=== PATIENT | female | born 1935 | race Caucasian/White ===

== ENCOUNTER 2019-09-11 18:33 | Inpatient (IN) | payer MEDICARE, MEDICAID ==
[~2019-09-11] VITALS: Ht 154.9 cm; Wt 42.2 kg
[2019-09-11 20:05] LABS: BASO % 0 % (0-3); EOS % 0 % (0-3); HEMOGLOBIN 10.3 g/dL (12.0-15.5); LYMPH # 1.7 x10^3/uL (1.0-4.8); LYMPH % 9 % (24-48); MEAN CORPUSCULAR HEMOGLOBIN 31 pg (25-35); MEAN CORPUSCULAR HGB CONC 31 g/dL (31-37); MEAN CORPUSCULAR VOLUME 98 fL (79-100); MONO # 0.9 x10^3/uL (0.0-1.1); MONO % 5 % (0-9); NEUT # 16.9 x10^3uL (1.8-7.7); NEUT % 86 % (31-73); PLATELET COUNT 633 x10^3/uL (140-400); RED BLOOD COUNT 3.38 x10^6/uL (3.50-5.40); RED CELL DISTRIBUTION WIDTH 14.8 % (11.5-14.5); WHITE BLOOD COUNT 19.6 x10^3/uL (4.0-11.0)
[2019-09-11 20:06] LABS: ALBUMIN 2.8 g/dL (3.4-5.0); ALBUMIN/GLOBULIN RATIO 0.6 (1.0-1.7); CALCIUM 9.4 mg/dL (8.5-10.1); CREATININE 1.1 mg/dL (0.6-1.0); GFR 47.1; MAGNESIUM 2.6 mg/dL (1.8-2.4); POTASSIUM 5.2 mmol/L (3.5-5.1); TOTAL BILIRUBIN 0.4 mg/dL (0.2-1.0); TOTAL PROTEIN 7.7 g/dL (6.4-8.2)
[2019-09-11 20:35] LABS: BILIRUBIN,URINE NEG (NEG); CLARITY,URINE CLEAR; COLOR,URINE YELLOW; GLUCOSE,URINE NEG (NEG); NITRITE,URINE NEG (NEG); UROBILINOGEN,URINE 0.2 mg/dL (0.2 mg/dL)
[2019-09-11 20:36] LABS: BACTERIA,URINE FEW /HPF (0-FEW); HYALINE CASTS, URINE MOD /HPF; RBC,URINE 0 /HPF (0-2); SQUAMOUS EPITHELIAL CELL,UR MOD /LPF; WBC,URINE 0 /HPF (0-4)
[2019-09-11 20:46] LABS: % LYMPHS 8 % (24-48); % MONOS 3 % (0-10); % SEGS 89 % (35-66); PLT ESTIMATE INCREASED (ADEQUATE); POIKILOCYTOSIS SLIGHT
[2019-09-11 20:47] LABS: ANISOCYTOSIS SLIGHT; STOMATOCYTES MOD
[2019-09-11] MEDS ORDERED: MELA3TAB56 PO (20:48)
[2019-09-11] MEDS ORDERED: FAMO20TA5 PO (20:48)
[2019-09-11] MEDS ORDERED: ALEN70TA6 PO (20:48)
[2019-09-11] MEDS ORDERED: CALC-157 PO (20:48)
[2019-09-11] MEDS ORDERED: ALPR0.254 PO (20:48)
[2019-09-11] MEDS ORDERED: MAG355OR11 PO (20:48)
[2019-09-11] MEDS ORDERED: TROL35.4 TP (20:48)
[2019-09-11] MEDS ORDERED: SERT50TA PO (20:48)
[2019-09-11] MEDS ORDERED: TRAM50TA PO (20:48)
[2019-09-11] MEDS ORDERED: ACET325T9 PO (20:48)
[2019-09-11] MEDS ORDERED: IPRA3AMP29 NEB (20:48)
[2019-09-11] MEDS ORDERED: POLY2500 PO (20:48)
[2019-09-11] MEDS ORDERED: MAGN2400 PO (20:48)
[2019-09-11] MEDS ORDERED: BISA10SU4 RC (20:48)
[2019-09-11] MEDS ORDERED: PRED5TAB PO (20:48)
[2019-09-11] MEDS ORDERED: METO25TA4 PO (20:48)
[2019-09-11] MEDS ORDERED: BUDE10.22 IH (20:48)
[2019-09-11] MEDS ORDERED: CHOL400T14 PO (20:48)
[2019-09-11] MEDS ORDERED: BISA5TAB4 PO (20:48)
[2019-09-11] MEDS ORDERED: ASPI325T8 PO (20:48)
--- NOTE | 2019-09-11 20:58 | PHYS DOC ---
Past History Past Medical History: A-Fib, Anxiety, COPD, GERD, High Cholesterol, Hip Fracture, Hypertension, Other Additional Past Medical Histor: OSTEOPORESIS Past Surgical History: Other Additional Past Surgical Histo: Hip ORIF Smoking: Quit Less Than 1 Year Alcohol Use: None Drug Use: None Adult General Chief Complaint Chief Complaint: MEDICAL CLEARANCE HPI HPI 84 year old female presents from [facility] for medical evaluation for admission to [facility]. Patient denies any compliant at this time. Patient with recent hip surgery 3 weeks ago. residential report noted patient yelling at staff, angry, and combative. Patient currently denies any complaint. Denies fever or chills. Denies dysuria. Patient with history of COPD. Reports recently discontinuing smoking apprising 6 months prior. Patient is chronically on supplemental oxygen via nasal cannula at 2 L. Review of Systems Review of Systems Constitutional: Denies fever or chills Eyes: Denies redness or eye pain HENT: Denies nasal congestion or sore throat Respiratory: Denies cough or shortness of breath Cardiovascular: Denies chest pain or palpitations GI: Denies abdominal pain, nausea, or vomiting : Denies dysuria or hematuria Musculoskeletal: Denies back pain or joint pain Integument: Denies rash or skin lesions Neurologic: Denies headache, focal weakness or sensory changes Complete systems were reviewed and found to be within normal limits, except as documented in this note. Allergies Allergies Allergies Coded Allergies Type Severity Reaction Last Updated Verified No Known Drug Allergies 09/11/19 No Physical Exam Physical Exam Constitutional: Well developed, well nourished, no acute distress, non-toxic appearance HENT: Normocephalic, atraumatic, oropharynx moist Eyes: PERRL, EOMI, conjunctiva normal, no discharge Neck: Normal range of motion, no tenderness, supple Cardiovascular: Heart rate normal, regular rhythm Lungs & Thorax: Bilateral breath sounds clear to auscultation, no wheezing Abdomen: Soft, no tenderness Skin: Warm, dry, no erythema, no rash Extremities: No tenderness, no edema, left hip incision site currently dressed without saturation or surrounding erythema Neurologic: Alert and oriented X 3, normal motor function, normal sensory fun ction, no focal deficits noted Psychologic: Affect normal, judgement normal Current Patient Data Vital Signs Vital Signs Date Time Temp Pulse Resp B/P (MAP) Pulse Ox O2 Delivery O2 Flow Rate FiO2 09/11/19 19:00 97.5 95 28 97 Nasal Cannula 2.0 Lab Results Laboratory Tests Test 09/11/19 19:15 09/11/19 19:50 White Blood Count 19.6 x10^3/uL (4.0-11.0) H Red Blood Count 3.38 x10^6/uL (3.50-5.40) L Hemoglobin 10.3 g/dL (12.0-15.5) L Hematocrit 33.0 % (36.0-47.0) L Mean Corpuscular Volume 98 fL (79-100) Mean Corpuscular Hemoglobin 31 pg (25-35) Mean Corpuscular Hemoglobin Concent 31 g/dL (31-37) Red Cell Distribution Width 14.8 % (11.5-14.5) H Platelet Count 633 x10^3/uL (140-400) H Neutrophils (%) (Auto) 86 % (31-73) H Lymphocytes (%) (Auto) 9 % (24-48) L Monocytes (%) (Auto) 5 % (0-9) Eosinophils (%) (Auto) 0 % (0-3) Basophils (%) (Auto) 0 % (0-3) Neutrophils # (Auto) 16.9 x10^3uL (1.8-7.7) H Lymphocytes # (Auto) 1.7 x10^3/uL (1.0-4.8) Monocytes # (Auto) 0.9 x10^3/uL (0.0-1.1) Eosinophils # (Auto) 0.0 x10^3/uL (0.0-0.7) Basophils # (Auto) 0.0 x10^3/uL (0.0-0.2) Segmented Neutrophils % 89 % (35-66) H Lymphocytes % 8 % (24-48) L Monocytes % 3 % (0-10) Platelet Estimate Increased (ADEQUATE) Large Platelets Few Giant Platelets Few Poikilocytosis Slight Anisocytosis Slight Stomatocytes Mod Prothrombin Time 9.7 SEC (9.4-11.4) Prothrombin Time INR 0.9 (0.9-1.1) Activated Partial Thromboplast Time 29 SEC (23-33) Sodium Level 141 mmol/L (136-145) Potassium Level 5.2 mmol/L (3.5-5.1) H Chloride Level 99 mmol/L (98-107) Carbon Dioxide Level 35 mmol/L (21-32) H Anion Gap 7 (6-14) Blood Urea Nitrogen 31 mg/dL (7-20) H Creatinine 1.1 mg/dL (0.6-1.0) H Estimated GFR (Cockcroft-Gault) 47.1 BUN/Creatinine Ratio 28 (6-20) H Glucose Level 157 mg/dL (70-99) H Calcium Level 9.4 mg/dL (8.5-10.1) Magnesium Level 2.6 mg/dL (1.8-2.4) H Total Bilirubin 0.4 mg/dL (0.2-1.0) Aspartate Amino Transferase (AST) 20 U/L (15-37) Alanine Aminotransferase (ALT) 14 U/L (14-59) Alkaline Phosphatase 182 U/L (46-116) H Creatine Kinase 36 U/L (26-192) Creatine Kinase MB (Mass) 1.0 ng/mL (0.0-3.6) Creatine Kinase MB Relative Index 2.8 % (0-4) Troponin I Quantitative < 0.017 ng/mL (0-0.055) Total Protein 7.7 g/dL (6.4-8.2) Albumin 2.8 g/dL (3.4-5.0) L Albumin/Globulin Ratio 0.6 (1.0-1.7) L Urine Collection Type Unknown Urine Color Yellow Urine Clarity Clear Urine pH 5.5 Urine Specific [place] 1.020 Urine Protein Neg (NEG-TRACE) Urine Glucose (UA) Neg mg/dL (NEG) Urine Ketones (Stick) Neg mg/dL (NEG) Urine Blood Neg (NEG) Urine Nitrite Neg (NEG) Urine Bilirubin Neg (NEG) Urine Urobilinogen Dipstick 0.2 mg/dL (0.2 mg/dL) Urine Leukocyte Esterase Neg (NEG) Urine RBC 0 /HPF (0-2) Urine WBC 0 /HPF (0-4) Urine Squamous Epithelial Cells Mod /LPF Urine Bacteria Few /HPF (0-FEW) Urine Hyaline Casts Mod /HPF Urine Mucus Slight /LPF EKG EKG @1922 NRS at 78bpm, no ST elevation, QRS 74ms, QT/QTc 346/398ms Radiology/Procedures Radiology/Procedures CXR AP: Hyperventilation consistent for COPD, lung markings consistent for fibrosis noted Course & Med Decision Making Course & Med Decision Making Pertinent Labs and Imaging studies reviewed. (See chart for details) Elderly patient presents from [facility]. Patient apparently has been more agitated and aggressive to [facility] staff. Patient currently call. Follows directions well. Patient alert and oriented 3. Patient chronically on supplemental O2. Vital signs stable. Labs obtained and posted to chart. WBC elevated. Medical record notes patient currently being treated with prednisone which may explain leukocytosis. Chest x-ray with signs of COPD without focal signs of pneumonia. UA without signs of infection. EKG stable. Patient appears stable for admission to [facility] despite leukocytosis. Will continue with admission to [facility] under Dr. Damian (psych). Dragon Disclaimer Dragon Disclaimer This electronic medical record was generated, in whole or in part, using a voice recognition dictation system. Departure Departure: Impression: Primary Impression: Medical clearance for psychiatric admission Additional Impression: Leukocytosis Disposition: 09 ADMITTED INPATIENT (to [facility]) Condition: STABLE Referrals: CHIKA BARRERA DO (PCP) Problem Qualifiers Additional Impression: Leukocytosis Leukocytosis type: unspecified Qualified Codes: D72.829 - Elevated white blood cell count, unspecified MALATHI AMARAL DO Sep 11, 2019 20:58
--- NOTE | 2019-09-11 21:44 | NUR ---
Admission Note with Justification for Admission to [facility] Patient admitted to [facility] for protective oversight for emergency stabilization of acute psychiatric crisis. Pt admitted from: [facility] ER Mode of arrival: EMS Accompanied By: ER staff/ EMS Precipitating behaviors that initiated intake and admission: Increased agitation upon return to facility after hip fracture, refusing neurochecks, swinging arms at staff, angry and labile mood. Description of failure of out patient attempts at stabilization in previous setting list behavior and medication trials: Seen by [facility] via [facility], medication changes. Behaviors and assessment findings upon admission: Pt alert, irritable with staff during assessment. Pt refusing to answer questions, reports that she doesn't have a birthdate and that she doesn't know her last name. When asked where she is, pt replied "I don't know", then stated she was at a restaurant eating hamburgers. Pt on O2 @2L continuously, has upper and lower dentures, and glasses. Dressing to left hip C/D/I, picture taken. Pt was changed into a gown, non-slip socks on, bed low and locked with alarm on. Plan: Admit for protective oversight for adjustment and stabilization of medications, behaviors and mood. Intense treatment regimen including groups, medication adjustments, therapy, consistent regimen for ADL's, self care, and sleep hygiene. Daily monitoring by Inpatient staff, Psychiatry, and Medical Physician.
[2019-09-11 21:57] VITALS: BP 119/51
[2019-09-11] MEDS ORDERED: BISACODYL 10 MG SUPP.RECT RC PRN (22:15)
[2019-09-11] MEDS ORDERED: IPRATRPIUM/ALBUTEROL 0.5/2.5MG 3 ML NEBU. NEB PRN (22:15)
[2019-09-11] MEDS ORDERED: BISACODYL TAB 5 MG TABLET.DR. PO PRN (22:15)
[2019-09-11] MEDS ORDERED: ACETAMINOPHEN 325 MG TABLET PO PRN (22:15)
--- NOTE | 2019-09-11 22:29 | RAD ---
Single view chest dated 09/11/2019. No comparison available. CLINICAL INDICATION: Cough. FINDINGS: Single upright portable exam performed. Heart and mediastinal contours within normal limits. Lungs are hyperinflated there is a ovoid areas of increased density projected over the right chest could be related to healed or healing rib fractures or underlying lung nodules. There is blunting of the right costophrenic sulcus. No pneumothorax. IMPRESSION: 1. Ovoid areas of increased density projected over the right chest could be related to healed or healing rib fractures and/or underlying lung nodules. PA and lateral chest exam or chest CT could better evaluate. 2. Suspected small right pleural effusion. 3. Findings consistent with COPD. Electronically signed by: Prasanna Malik MD (09/11/2019 10:26 PM) [facility]
[2019-09-11] MEDS ORDERED: MAG HYDROX/AL HYDROX/SIMETH 30 ML ORAL.SUSP PO PRN (22:30)
[2019-09-11] MEDS ORDERED: TROLAMINE SALICYLATE 10% TOPICAL CREAM 85GM JAR. TP PRN ×2 (22:30)
[2019-09-11] MEDS ORDERED: MAGNESIUM HYDROXIDE 2,400 MG/30 ML ORAL.SUSP. PO PRN (22:30)
[2019-09-11] MEDS: traMADol 50 MG TABLET PO SCH (23:28)
[2019-09-11] MEDS: MELATONIN 3 MG TABLET PO SCH (23:29)
--- NOTE | 2019-09-12 03:39 | EKG ---
[address] [address] Test Date: 2019-09-11 Test Time: 19:22:43 Pat Name: JESSICA HAYES Department: Room: [address] [place] [address] Gender: F Rural Route Carrier: GALI : 1935 Requested By: MALATHI AMARAL Order Number: [id number] Reading MD: Brando Painter MD Measurements Intervals [place] Rate: 78 P: 57 NE: 130 QRS: 61 QRSD: 74 T: 54 QT: 346 QTc: 398 Interpretive Statements SINUS RHYTHM Electronically Signed On 10-19-2019 9:03:58 RUBBER INSULATOR by Brando Painter MD
[2019-09-12 05:05] VITALS: BP 147/82
[2019-09-12] MEDS: ALBUTEROL SULFATE 2.5 MG/3 ML NEBU. NEB SCH ×4 (05:28→23:43)
[2019-09-12] MEDS: traMADol 50 MG TABLET PO SCH ×3 (06:00→18:03)
[2019-09-12] MEDS ORDERED: NON FORMULARY ITEM (Budesonide/Formoterol Fumarate (Symbicort 80-4.5 Mcg Inhaler) 2 PUFF) IH SCH (09:00)
[2019-09-12] MEDS: ASPIRIN 325 MG TABLET PO SCH (09:58)
[2019-09-12] MEDS: METOPROLOL TART IMMED RELEASE 25 MG TABLET PO SCH ×2 (09:59→20:07)
[2019-09-12] MEDS: CALCIUM CARB/VIT D3 500/200 TABLET PO SCH ×2 (09:59→20:07)
[2019-09-12] MEDS: SERTRALINE 50 MG TABLET. PO SCH (09:59)
[2019-09-12] MEDS: predniSONE 5 MG TABLET PO SCH (09:59)
[2019-09-12] MEDS: CHOLECALCIFEROL (VITAMIN D3) 1,000 UNIT TABLET PO SCH (10:00)
[2019-09-12] MEDS: ALPRAZolam 0.25 MG TABLET PO SCH ×3 (10:00→20:06)
[2019-09-12] MEDS: FAMOTIDINE 20 MG TABLET PO SCH (10:01)
[2019-09-12] MEDS: POLYETHYLENE GLYCOL 3350 17 GM PACKET. PO SCH (10:01)
[2019-09-12] MEDS: BUDESONIDE 0.5 MG/2 ML NEBU NEB SCH ×2 (10:34→23:42)
--- NOTE | 2019-09-12 10:35 | NUR ---
NURSING NOTE ORTHO SURGERY PT SEEN DR MURRY FOR FOLLOW UP YESTERDAY 09/11/19. CALLED OFFICE [phone] AND NURSE STATES THE NOTES ARE NOTE FINISHED AND SHE WILL CHECK WITH THE DOCTOR AND FAX US ORDERS FOR DRESSING AND BATHING ABILITY ETC. MAXIM GOMEZ.
--- NOTE | 2019-09-12 13:52 | NUR ---
NURSING NOTE ORTHO ORDERS REMOVE SHASTA TO LEFT HIP. APPLY STERI STRIPS. MAY LEAVE OPEN TO AIR. MAY SHOWER. WEIGHT BEARING TOLERATED. PER DR MURRY/OBED. ORDERS PLACED IN CHART. SUTURES REMOVED. STERI STIRPS APPLIED. INCISION IS CLEAN AND INTACT. NO REDNESS/SWELLING/DISCHARGE. LEFT OPEN TO AIR. MAXIM GOMEZ.
[2019-09-12 13:56] LABS: THYROID STIM HORMONE (TSH) 0.987 uIU/mL (0.358-3.740)
--- NOTE | 2019-09-12 15:36 | NUR ---
NURSING NOTE PT WAS A&O X3 TODAY. PT WAS ABLE TO STATE HER NAME, , LOCATION, AND PRESIDENT BUT WAS NOT ORIENTED TO THE DATE, PT STATES "1993". PT WAS IN QUIET ROOM THIS AM UPON SHIFT CHANGE. PT OXYGEN TAKE WAS FOUND EMPTY THIS AM. TANK SWITCHED TO NEW ONE. PT HAD LEFT HIP SURGERY, SEE OTHER NOTE FOR ORDERS FROM DR MURRY. SHASTA REMOVED TODAY AND STERI STRIPS APPLIED. PT FOUND TO HAVE BANDAGE DATED 09/11 ON LEFT ELBOW, BANDAGE REMOVED AND SMALL SKIN TEAR WITH STERI STRIPS FOUND. CLEAN DRY AND INTACT. NO FURTHER CARE NEEDED AT THIS TIME. PT IS TO HAVE GRACE HOSE ON DURING THE DAY WHILE UP OUT OF BED. PT DENIED LAST BOWEL MOVEMENT, MIRALAX GIVEN. PT HAS BEEN CALM AND COOPERATIVE IN DAY ROOM THIS AFTERNOON. NO BEHAVIORS NOTED THUS FAR. COMPLIANT WITH MEDS AND INTERACTIVE WITH STAFF AND PATIENTS. PT SYPHILIS TEST POSITIVE, PCN G BENZATHINE ORDERED PER DR ROCKWELL. WILL CONTINUE TO MONITOR. MAXIM GOMEZ.
[2019-09-12 16:11] VITALS: BP 131/78
--- NOTE | 2019-09-12 18:48 | NUR ---
NURSING NOTE PT WAS FOUND ON THE FLOOR IN HER ROOM, PT STATES SHE IS TRYING TO GET TO THE KITCHEN. PT STATES SHE JUST GOT OUT OF THE HOSPITAL AND IS AT HER HOME. TRIED TO REORIENT PT. HELPED PT TO WHEELCHAIR AND PT ATTEMPT TO SWING AT STAFF. PT IS IN QUIET ROOM AT THIS TIME. MAXIM GOMEZ.
[2019-09-12 19:07] LABS: THYROXINE 4.6 ug/dL (4.5-12.0)
[2019-09-12] MEDS: MELATONIN 3 MG TABLET PO SCH (20:07)
--- NOTE | 2019-09-12 20:36 | PDOC ---
Exam Note: Rodolfo Note: Please also refer to the separate dictated note~for this date of service dictated separately. Discussed the patient with Nursing staff reviewed the chart.~Reviewed interim history and current functioning. Reviewed vital signs,~Labs/ Radiology~and current medications noted below. Continue current treatment with the changes noted in the dictated addendum note Assessment: Vital Signs/I&O: Vital Signs Date Time Temp Pulse Resp B/P (MAP) Pulse Ox O2 Delivery O2 Flow Rate FiO2 09/12/19 20:07 87 131/78 09/12/19 19:03 20 Nasal Cannula 2.0 09/12/19 16:11 98.6 97 I & O 09/11/19 09/11/19 09/12/19 15:00 23:00 07:00 Intake Total 0 ml Balance 0 ml Current Medications: Meds: Current Medications Medications (Trade) Dose Ordered Sig/Abiel Route PRN Reason Start Time Stop Time Status Last Admin Dose Admin Alprazolam (Xanax) 0.125 mg TID PO 09/12/19 09:00 09/12/19 20:06 Sertraline HCl (Zoloft) 50 mg DAILY PO 09/12/19 09:00 09/12/19 09:59 Aspirin (Josey Aspirin) 325 mg DAILY PO 09/12/19 09:00 09/12/19 09:58 Calcium/Vitamin D (Oscal D 500mg/ 200uts) 1 tab BID PO 09/12/19 09:00 09/12/19 20:07 Famotidine (Pepcid) 20 mg DAILY PO 09/12/19 09:00 09/12/19 10:01 Metoprolol Tartrate (Lopressor) 25 mg BID PO 09/12/19 09:00 09/12/19 20:07 Prednisone (Prednisone) 5 mg DAILY PO 09/12/19 09:00 09/12/19 09:59 Tramadol HCl (Ultram) 50 mg Q6HRS PO 09/12/19 00:00 09/12/19 18:03 Vitamin D (Vitamin D3) 500 unit DAILY PO 09/12/19 09:00 09/12/19 10:00 Polyethylene Glycol (miraLAX) 17 gm DAILY PO 09/12/19 09:00 09/12/19 10:01 Albuterol Sulfate (Ventolin) 2.5 mg RTQID NEB 09/12/19 08:00 09/12/19 16:13 Budesonide (Pulmicort) 0.5 mg RTBID NEB 09/12/19 08:00 09/12/19 10:34 Melatonin (Melatonin) 3 mg HS PO 09/11/19 23:30 09/12/19 20:07 I have reviewed the current psychotropics carefully including drug interactions. Risk benefit ratio favors no change other than as noted in my dictated progress note. Diagnosis: Problems: (1) Anxiety disorder (2) Dementia in Alzheimer's disease with delusions (3) Dementia in Alzheimer's disease with depression (4) Dementia, vascular, with delusions (5) Dementia, vascular, with depression (6) Impulse control disorder (7) [place] (hard of hearing) CHITRA BRANNON MD Sep 12, 2019 20:36
[2019-09-12] MEDS ORDERED: MELATONIN 3 MG TABLET PO SCH (21:00)
[2019-09-12] MEDS: PENICILLIN G BENZATHINE LA 1,200,000 UNIT/2 ML DISP.SYRIN. IM SCH (21:03)
--- NOTE | 2019-09-12 23:04 | NUR ---
Nursing Note The patient was very disorganized and combative at the beginning of this HS shift. The patient was attempting to put herself onto the floor and exit her chair without assistance. The patient removed her oxygen several times causing her oxygen saturation to drop into the 70s. The patient did become more complaint once helped into bed and eventually took her medication whole. The patient is currently sleeping in her room.
[2019-09-12 23:07] LABS: HEMOGLOBIN A1C 5.7 % (4.8-5.6)
--- NOTE | 2019-09-13 01:33 | CONS ---
DATE OF CONSULTATION: REASON FOR CONSULTATION: Medical management. HISTORY OF PRESENT ILLNESS: The patient is an 84-year-old female patient, a resident at [facility], who was admitted on account of increased agitation upon returned to the facility after hip surgery 2 weeks ago, has been refusing neuro checks, swinging arms at staff, shouting at staff, angry, have a labile mood. All of this in a background of major depressive disorder and mild cognitive impairment, who was admitted to this unit for inpatient psychiatric stabilization. On questioning her, she denied any complaints. PAST MEDICAL HISTORY: Significant for hypertension, hyperlipidemia, chronic obstructive pulmonary disease, atrial fibrillation, gastroesophageal reflux disease, and osteoporosis. PAST SURGICAL HISTORY: Significant for left hip fracture, status post open reduction and internal fixation. PAST PSYCHIATRIC HISTORY: Significant for generalized anxiety disorder and major depressive disorder, mild cognitive impairment as well as insomnia. ALLERGIES: She has no known drug allergies. MEDICATIONS: She is currently on following medications: She is on ipratropium bromide, albuterol sulfate 0.5-2.5 mg in 3 mL by nebulizer every 8 hours. She is on metoprolol tartrate 25 mg twice a day, aspirin 325 mg once a day, tramadol 50 mg every 6 hours as needed. She is also on Tylenol 650 mg every 6 hours, sertraline 50 mg at bedtime, alprazolam 0.25 mg, she takes 0.125 mg 3 times a day, calcium carbonate with vitamin D3 one tablet twice a day, Symbicort 2 puffs twice a day, Maalox 15-30 mL after meals, bisacodyl 10 mg suppositories rectally daily p.r.n. for constipation, bisacodyl 10 mg tablet once a day, milk of magnesia 30 mL p.o. daily p.r.n. for constipation, famotidine 20 mg daily, prednisone 5 mg once a day. She is also on Aspercreme 10% applied topically every 6 hours, vitamin D3 400 units once a day, alendronate 70 mg every Wednesday and melatonin 3 mg at bedtime. She is on polyethylene glycol 17 grams daily p.r.n. for constipation. REVIEW OF SYSTEMS: As per history of present illness. PHYSICAL EXAMINATION GENERAL: When I examined her, she was sitting comfortably in her wheelchair, in no apparent distress. She was pale, cachectic, but no jaundice, cyanosis or thyromegaly. No jugular venous distention. No lower limb edema. VITAL SIGNS: Her heart rate was 106, blood pressure was 147/82, temperature was ____, her respiratory rate was 16, and oxygen saturation was 92% on 2 liters of oxygen. HEAD, EYES, EARS, NOSE AND THROAT: Showed she is normocephalic, atraumatic. NECK: Supple. CARDIAC: Normal first and second heart sounds. No gallop or murmur. CHEST: Shows central trachea, equally reduced expansion, reduced air entry, vesicular breath sounds. I could not really appreciate any crepitation or rhonchi. ABDOMEN: Her abdomen is slightly distended, soft, nontender. NEUROLOGIC: She is awake, alert, responding appropriately. All her cranial nerves intact. She has marked muscle weakness. She seemed to be mostly wheelchair bound and oxygen dependent on 2 liters by nasal cannula. LABORATORY DATA: Showed that her white cell count was extremely high at 19,600, hemoglobin 10, hematocrit 33, MCV 98, platelet count of 633,000 with a manual differential, showed 86% polymorphs, 9% lymphocytes. Her prothrombin time, INR and aPTT were normal. Her chemistry showed that her serum sodium 141, potassium 5.2, chloride 99, bicarbonate 35, anion gap of 7, BUN 31, creatinine 1.1, estimated GFR was 47 mL per minute. Her glucose 157, calcium was 9.4, magnesium 2.6. Her serum iron, TIBC, and iron saturation are all very low, consistent with anemia of chronic disease. Her total bilirubin, AST, ALT were normal. Alkaline phosphatase slightly elevated. Total protein was 7.7, albumin was 2.8. Her vitamin B12, 25-hydroxy vitamin D, and TSH are all within normal range. Her serum triglycerides were 121, total cholesterol of 58, LDL was 78, VLDL was 24, HDL was 56 and the ratio was 2. Her urinalysis was essentially unremarkable and was negative for blood, nitrite, and leukocyte esterase. There are no rbc's, no wbc's, and very few bacteria. 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 IMPRESSION: In summary, this is an 84-year-old female patient, a resident at [facility], who was admitted on account of increased agitation upon return to facility after hip surgery 2 weeks ago, refusing neuro checks, and swinging arms at staff and shouting at staff and angry and labile mood. Her lab work shows prominent leukocytosis and also markedly elevated platelet. Her platelet count was 633,000 consistent probably with some form of polycythemia, although her hemoglobin and hematocrit were low; however, she has undergone surgery recently. 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 Thank you, Dr. Damian, for allowing me to participate in the care of this patient. KATIE ROCKWELL MD DR: ALETA/kem JOB#: [id number] / [id number]
[2019-09-13] MEDS: ALBUTEROL SULFATE 2.5 MG/3 ML NEBU. NEB SCH ×4 (05:10→20:06)
[2019-09-13 05:18] VITALS: BP 114/67
[2019-09-13] MEDS: traMADol 50 MG TABLET PO SCH ×4 (06:00→17:31)
[2019-09-13] MEDS: FAMOTIDINE 20 MG TABLET PO SCH (10:11)
[2019-09-13] MEDS: POLYETHYLENE GLYCOL 3350 17 GM PACKET. PO SCH (10:11)
[2019-09-13] MEDS: SERTRALINE 50 MG TABLET. PO SCH (10:11)
[2019-09-13] MEDS: CALCIUM CARB/VIT D3 500/200 TABLET PO SCH ×2 (10:11→20:30)
[2019-09-13] MEDS: CHOLECALCIFEROL (VITAMIN D3) 1,000 UNIT TABLET PO SCH (10:11)
[2019-09-13] MEDS: ASPIRIN 325 MG TABLET PO SCH (10:11)
[2019-09-13] MEDS: predniSONE 5 MG TABLET PO SCH (10:11)
[2019-09-13] MEDS: METOPROLOL TART IMMED RELEASE 25 MG TABLET PO SCH ×2 (10:11→20:30)
[2019-09-13] MEDS: ALPRAZolam 0.25 MG TABLET PO SCH ×3 (10:12→20:32)
[2019-09-13] MEDS: BUDESONIDE 0.5 MG/2 ML NEBU NEB SCH ×2 (11:12→20:06)
--- NOTE | 2019-09-13 11:14 | NUR ---
NURSING NOTE PT WANTED TO SLEEP IN THIS AM. PT SLEPT THROUGH BREAKFAST. PT GOT UP AROUND 0950. PT WAS CALM AND COOPERATIVE WITH CARES THIS AM AND COMPLIANT WITH MEDS. PT WAS A&O X 2 STATED IT WAS 2028. PT IS CURRENTLY IN DAY ROOM INTERACTING WITH OTHER PATIENTS. NO BEHAVIORS NOTED THUS FAR. WILL CONTINUE TO MONITOR. MAXIM GOMEZ.
--- NOTE | 2019-09-13 11:20 | NUR ---
PSYCHOSOCIAL ASSESSMENT ADMISSION DATE: 09/11/19 CONTACT INFORMATION: DPOA/Guardian Contact Name: N/A Contact Address: N/A Contact Phone #: N/A ETHNIC ORIGIN: REASONS FOR ADMISSION: Aggressive, Agitated, Angry, and Combative ADDITIONAL ADMISSION COMMENTS: Per pt. intake, pt. was agitated upon return to her facility, refusing neuro check, swinging arms at staff, shouting at staff, angry, and a labile mood. REASON FOR ADMISSION IN PATIENT/FAMILY'S OWN WORDS: Per pt., "My daughter brought me down." "I broke my hip." When asked what happen at her facility, pt. said she did not remember swing at staff. "They said I did." PATIENT/FAMILY EXPECTATIONS FOR ADMISSION: "Gettin Better" LIVING SITUATION: Assisted Living Contact Name: [facility] Contact Address: [place] Contact Phone #: [phone] Contact Fax #: [phone] FAMILY RELATIONS: Marital Status: # of Marriages: 2 # of Children: 2 Pt. has one son, Brenton, and a daughter, Magaly. [facility] Family Support: Concerned and Cooperative Additional Comments r/t Family: Pt. has given permission for staff to speak to her daughter, Magaly. SIGNIFICANT PSYCHIATRIC/MEDICAL HISTORY: Psychiatric/Treatment History: Pt. stated she was "probably" diagnosed with "anxiety." Per pt. intake pt. has a Mild Cognitive Impairment, Alzheimers, MDD, and insomnia. Pt. reports no previous psychiatric treatment history. Pertinent Family History: Pt. reports "no" pertinent family history. HISTORICAL DATA: Childhood Environment: "Not very good." "We were poor." Pt. grew up in [place] with her mother, father, and seven siblings. Pt. reports she has one brother still living. Psychological Abuse: None Drug Abuse History last 12 months: No Comment: Pt. reports she "gave up smoking" "four to five months ago". PERSONAL HISTORY: Vocational history: Pt. 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 service: N Yazidism background: "Well ya I am." "I don't go much." "I'm Worship." Sexual orientation: Heterosexual Educational Level: Pt. graduated from high school. Past/Present Interests/Hobbies: Pt. enjoys "sitting around reading" and "watching the news." Financial support/resources: Social Security Monthly income: $889 Person handling finances: Staff at [facility] Do you have a history of legal problems: N Cultural considerations: "No" SOCIAL RELATIONSHIPS-CURRENT/PAST: Psychiatrist:[facility] PCP: Dr. Lauren Montgomery Counselor/Therapist: None Veterans[employer] Administration: None Support Group: None Brusher Operator/First Grade Teacher: None Other relationships: None STRENGTHS & WEAKNESSES: Patient's strengths: Good verbal skills, Stable living arrangement, and Approachable Patient's weaknesses: Physically Aggressive and Verbally Aggressive PRELIMINARY PLAN OF TREATMENT: Preliminary plan: Promote Coping Skill, Medication Stabilization, Monitor Med Effects, Decrease Outbursts, and Decrease Aggression DISCHARGE PLANNING: Discharge planning/disposition: Current Living Arrangement ADDITIONAL INFORMATION: Pt. was able to supply the information for this assessment. Pt. recently had hip surgery.
--- NOTE | 2019-09-13 12:39 | NUR ---
NURSING NOTE AT LUNCH TODAY PT SEEMS TO COUGH WITH EVERY BITE. PUREED DIET ORDERED FOR NOW AND ORDER FOR SPEECH EVALUATION PLACED. WILL CONTINUE TO MONITOR. MAXIM GOMEZ.
[2019-09-13 15:46] VITALS: BP 115/70
--- NOTE | 2019-09-13 17:33 | NUR ---
NURSING NOTE PT IS AT DINNER, STATES THE FOOD IS COLD AND ISNT TASTING GOOD. OFFERED TO GET PT A NEW PLATE OF FOOD. PT REFUSED. PT STATED THAT HER HIP IS HURTING BUT IS REFUSING TO TAKE THE PAIN MEDICATION THAT IS SCHEDULED FOR HER PAIN. PT STATES "YOU ARENT KILLING ME TODAY". PT HIDING FOOD IN HER SOUP TO LOOK LIKE SHE ATE IT. MAXIM GOMEZ.
[2019-09-13] MEDS: MELATONIN 3 MG TABLET PO SCH (20:29)
[2019-09-13] MEDS: QUEtiapine 25 MG TABLET. PO SCH (20:30)
--- NOTE | 2019-09-13 20:40 | PDOC ---
Exam Note: Rodolfo Note: Please also refer to the separate dictated note~for this date of service dictated separately.~Patient seen individually. Discussed the patient with Nursing staff reviewed the chart.~Reviewed interim history and current functioning. Reviewed vital signs,~Labs/ Radiology~and current medications noted below. Continue current treatment with the changes noted in the dictated addendum note Assessment: Vital Signs/I&O: Vital Signs Date Time Temp Pulse Resp B/P (MAP) Pulse Ox O2 Delivery O2 Flow Rate FiO2 09/13/19 20:30 117 108/70 09/13/19 20:08 98 Nasal Cannula 2.0 09/13/19 15:46 98.1 18 I & O 09/12/19 09/12/19 09/13/19 15:00 23:00 07:00 Intake Total 480 ml 240 ml 100 ml Balance 480 ml 240 ml 100 ml Current Medications: Meds: Current Medications Medications (Trade) Dose Ordered Sig/Abiel Route PRN Reason Start Time Stop Time Status Last Admin Dose Admin Penicillin G Benzathine (Bicillin L-A) 2,400,000 unit WEEKLYHS IM 09/12/19 21:00 09/26/19 21:01 09/12/19 21:03 Alprazolam (Xanax) 0.125 mg BID PO 09/13/19 21:00 09/15/19 21:01 09/13/19 20:32 Quetiapine Fumarate (SEROquel) 25 mg HS PO 09/13/19 21:00 09/13/19 20:30 I have reviewed the current psychotropics carefully including drug interactions. Risk benefit ratio favors no change other than as noted in my dictated progress note. Diagnosis: Problems: (1) Anxiety disorder (2) Dementia in Alzheimer's disease with delusions (3) Dementia in Alzheimer's disease with depression (4) Dementia, vascular, with delusions (5) Dementia, vascular, with depression (6) Impulse control disorder (7) [place] (hard of hearing) CHITRA BRANNON MD Sep 13, 2019 20:40
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
--- NOTE | 2019-09-13 23:48 | NUR ---
Pt sitting up in w/c in the day room at shift change. Pt anxious, yelling out at times d/t left hip pain. Pt cooperative with assessment and cares, compliant with medications taken whole but did refuse her Os-heather because "it's too big", "I can't take that".
[2019-09-14] MEDS: ALBUTEROL SULFATE 2.5 MG/3 ML NEBU. NEB SCH ×4 (05:13→20:18)
[2019-09-14 05:55] VITALS: BP 122/59
[2019-09-14] MEDS: traMADol 50 MG TABLET PO SCH ×4 (06:00→12:44)
[2019-09-14] MEDS: ALPRAZolam 0.25 MG TABLET PO SCH ×2 (08:14→20:16)
[2019-09-14] MEDS: METOPROLOL TART IMMED RELEASE 25 MG TABLET PO SCH ×2 (08:15→20:16)
[2019-09-14] MEDS: predniSONE 5 MG TABLET PO SCH (08:15)
[2019-09-14] MEDS: ASPIRIN 325 MG TABLET PO SCH (08:15)
[2019-09-14] MEDS: CALCIUM CARB/VIT D3 500/200 TABLET PO SCH ×2 (08:15→20:15)
[2019-09-14] MEDS: CHOLECALCIFEROL (VITAMIN D3) 1,000 UNIT TABLET PO SCH (08:15)
[2019-09-14] MEDS: POLYETHYLENE GLYCOL 3350 17 GM PACKET. PO SCH (08:15)
[2019-09-14] MEDS: FAMOTIDINE 20 MG TABLET PO SCH (08:15)
--- NOTE | 2019-09-14 09:08 | NUR ---
WEEKLY ACTIVITY THERAPY NOTE Date of Admission: 09/11/2019 Date of AT Assessment: TBD Goal aimed: TBD Initial Goal: TBD Weekly progress towards goal: NA Group participation level: 2 group, moderate Weekly highlights: colored on clock on Wednesday, arranged le on Wednesday independently Behaviors observed: not around group often, using oxygen, during group on Wednesday: confused, restless trying to get up from wheelchair, thinking her daughter was down the rodriguez and it was time for her to go but she knew she didn't have a ride Plan: meet/assess Pt. Beneficial adaptations: oxygen concentrator, staff support, use of pocketalker
[2019-09-14] MEDS: SERTRALINE 50 MG TABLET. PO SCH (09:10)
--- NOTE | 2019-09-14 10:00 | NUR ---
Activity Therapy Assessment Completed based on interview, observation and [facility] notes. Pt. was sitting in the day room when therapist approached. Pt. uses a wheelchair due to a recent hip surgery and uses O2 as well. Pt. is hard of hearing and has a soft, mumbling voice that is difficult to understand at times. Pt. greeted therapist and asked how her mother was doing. Pt. was aware she was in the hospital- "waiting for this hip to heal. I had surgery". Pt. was unable to recall the exact place and stated the year as 1993. Pt. is and has two children, Brenton and Magaly. 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 Therapist observed that Pt. seemed to enjoy arranging silk le in a vase and coloring as well. Pt. often sleeps through groups but if she has direct support and prompting she is able to engage at times. Pt. can be combative with cares and often tries to stand unassisted from her wheelchair. When confused and disoriented, Pt. can be difficult to redirect. Initial goal to increase socialization and engagement: Pt. will engage in two Activity Therapy groups per week. Addendum: 09/28/19 at 0930 by [facility] [employer] [facility] Goal changed 09/28/19: Pt. will participate in at least five Activity Therapy groups per week
[2019-09-14] MEDS: BUDESONIDE 0.5 MG/2 ML NEBU NEB SCH ×2 (11:27→20:18)
--- NOTE | 2019-09-14 12:21 | NUR ---
CHANDANA contacted JERRY Regalado at [facility], to share pt. progress and discharge scheduled for the later part of next week. SW did shared pt. Xanax is being tapered, and pt. was started on Seroquel.
--- NOTE | 2019-09-14 15:18 | NUR ---
WEEKLY NOTE Pt. was present for treatment team. Pt. has been eating 50% of meals and sleeps an average of 5 hours. Pt. has been cooperative and medication compliant, however, has had periods of anxiousness and yelling out due to pain but is easily redirected. Pt. has trouble hearing but does not have hearing aids. Staff will encourage pt. to use a noise amplifier. Pt. medications continue to be adjusted and monitor. Pt. is set to discharge the later part of next week, back to [facility].
--- NOTE | 2019-09-14 15:48 | NUR ---
Nursing note: Pt has been in day room for most of the day. She has been compliant with taking her meds whole and was cooperative with her assessment. At the time of assessment, she was preoccupied with thinking she was going home. She attempted to stand up out of her wheelchair and told this nurse "I have to make sure my oxygen goes with me." She was able to be redirected at that time. Will continue to monitor.
[2019-09-14 16:15] VITALS: BP 111/64
[2019-09-14 20:14] VITALS: BP 134/61
[2019-09-14] MEDS: MELATONIN 3 MG TABLET PO SCH (20:16)
[2019-09-14] MEDS: QUEtiapine 25 MG TABLET. PO SCH (20:16)
--- NOTE | 2019-09-14 20:49 | PDOC ---
Exam Note: Rodolfo Note: Please also refer to the separate dictated note~for this date of service dictated separately.~Patient seen individually. Discussed the patient with Nursing staff reviewed the chart.~Reviewed interim history and current functioning. Reviewed vital signs,~Labs/ Radiology~and current medications noted below. Continue current treatment with the changes noted in the dictated addendum note Assessment: Vital Signs/I&O: Vital Signs Date Time Temp Pulse Resp B/P (MAP) Pulse Ox O2 Delivery O2 Flow Rate FiO2 09/14/19 20:19 98 Nasal Cannula 2.0 09/14/19 20:16 108 134/61 09/14/19 20:14 16 09/14/19 16:15 97.4 I & O 09/13/19 09/13/19 09/14/19 15:00 23:00 07:00 Intake Total 300 ml 100 ml Balance 300 ml 100 ml Current Medications: Meds: Current Medications Medications (Trade) Dose Ordered Sig/Abiel Route PRN Reason Start Time Stop Time Status Last Admin Dose Admin Alprazolam (Xanax) 0.125 mg BID PO 09/13/19 21:00 09/15/19 21:01 09/14/19 20:16 Sertraline HCl (Zoloft) 75 mg DAILY PO 09/14/19 09:00 09/14/19 09:10 Quetiapine Fumarate (SEROquel) 25 mg HS PO 09/13/19 21:00 09/14/19 20:16 I have reviewed the current psychotropics carefully including drug interactions. Risk benefit ratio favors no change other than as noted in my dictated progress note. Diagnosis: Problems: (1) Anxiety disorder (2) Dementia in Alzheimer's disease with delusions (3) Dementia in Alzheimer's disease with depression (4) Dementia, vascular, with delusions (5) Dementia, vascular, with depression (6) Impulse control disorder (7) [place] (hard of hearing) CHITRA BRANNON MD Sep 14, 2019 20:49
--- NOTE | 2019-09-15 00:08 | NUR ---
Pt sitting up in the day room at shift change. Pt calm and pleasant this evening. Pt cooperative with assessment and compliant with medications administered whole.
[2019-09-15] MEDS: ALBUTEROL SULFATE 2.5 MG/3 ML NEBU. NEB SCH ×4 (05:11→22:47)
[2019-09-15 05:59] VITALS: BP 113/65
[2019-09-15] MEDS: POLYETHYLENE GLYCOL 3350 17 GM PACKET. PO SCH (08:19)
[2019-09-15] MEDS: ASPIRIN 325 MG TABLET PO SCH (08:20)
[2019-09-15] MEDS: predniSONE 5 MG TABLET PO SCH (08:20)
[2019-09-15] MEDS: FAMOTIDINE 20 MG TABLET PO SCH (08:20)
[2019-09-15] MEDS: CALCIUM CARB/VIT D3 500/200 TABLET PO SCH ×2 (08:20→20:32)
[2019-09-15] MEDS: CHOLECALCIFEROL (VITAMIN D3) 1,000 UNIT TABLET PO SCH (08:20)
[2019-09-15] MEDS: SERTRALINE 50 MG TABLET. PO SCH (08:20)
[2019-09-15] MEDS: METOPROLOL TART IMMED RELEASE 25 MG TABLET PO SCH ×2 (08:20→20:33)
[2019-09-15] MEDS: ALPRAZolam 0.25 MG TABLET PO SCH ×2 (08:22→20:31)
[2019-09-15] MEDS: BUDESONIDE 0.5 MG/2 ML NEBU NEB SCH ×2 (10:42→22:47)
[2019-09-15] MEDS: traMADol 50 MG TABLET PO PRN (14:30)
[2019-09-15 15:59] VITALS: BP 114/69
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
--- NOTE | 2019-09-15 20:23 | PDOC ---
Exam Note: Rodolfo Note: Please also refer to the separate dictated note~for this date of service dictated separately.~Patient seen individually. Discussed the patient with Nursing staff reviewed the chart.~Reviewed interim history and current functioning. Reviewed vital signs,~Labs/ Radiology~and current medications noted below. Continue current treatment with the changes noted in the dictated addendum note Assessment: Vital Signs/I&O: Vital Signs Date Time Temp Pulse Resp B/P (MAP) Pulse Ox O2 Delivery O2 Flow Rate FiO2 09/15/19 16:53 Nasal Cannula 2.0 09/15/19 15:59 98.4 108 20 114/69 (84) 93 I & O 09/14/19 09/14/19 09/15/19 15:00 23:00 07:00 Intake Total 360 ml 240 ml 60 ml Balance 360 ml 240 ml 60 ml Current Medications: I have reviewed the current psychotropics carefully including drug interactions. Risk benefit ratio favors no change other than as noted in my dictated progress note. Diagnosis: Problems: (1) Anxiety disorder (2) Dementia in Alzheimer's disease with delusions (3) Dementia in Alzheimer's disease with depression (4) Dementia, vascular, with delusions (5) Dementia, vascular, with depression (6) Impulse control disorder (7) [place] (hard of hearing) CHITRA BRANNNO MD Sep 15, 2019 20:23
[2019-09-15] MEDS: QUEtiapine 25 MG TABLET. PO SCH (20:32)
[2019-09-15] MEDS: MELATONIN 3 MG TABLET PO SCH (20:33)
--- NOTE | 2019-09-15 22:42 | PN ---
DATE: 09/14/2019 PSYCHIATRIC PROGRESS NOTE This late entry 09/14/2019 covers elements not covered in my initial note. SUBJECTIVE: I met with the patient in the evening and staffed at a treatment team meeting with the entire team in the morning and the patient attending this conference. The patient has been hard of hearing, has never had hearing aids and will use a hearing amplifier to assist. Appetite is 50%, sleeping about 5 hours, compliant with medications, assessments, somewhat restless in the evening, more so confused in the evening. REVIEW OF SYSTEMS: Ambulation impaired, in wheelchair. No CV, , pulmonary, eye system symptoms on review. MENTAL STATUS EXAM: Oriented to herself. Insight, judgment, recent memory is impaired. Language function intact. Attention span short. Mood and affect withdrawn. LABORATORY DATA: Reviewed. IMPRESSION: Major depressive disorder, recurrent, severe; anxiety disorder, unspecified; mild cognitive impairment and hard of hearing, status post hip fracture. Rest unchanged. PLAN: No change from initial note. Maintain increased Zoloft along with Seroquel, gradually taper the Xanax. Rest unchanged including melatonin. The patient's progress being hard of hearing having ____. MAN Violeta BRANNON MD DR: BEATRIZ/kem JOB#: [id number] / [id number]
--- NOTE | 2019-09-16 03:07 | NUR ---
Nursing Note The patient was located in the day room for her medication and assessment. the patient was non compliant while in the day room but when moved to her room the patient was compliant and took her medication whole. The patient is currently sleeping in her room.
--- NOTE | 2019-09-16 03:57 | PN ---
DATE: 09/13/2019 PSYCHIATRIC PROGRESS NOTE This late entry 09/13/2019 covers elements not covered in my initial note. SUBJECTIVE: I met with the patient the evening of 09/13/2019. Per MAXIM Perrin, the patient slept 5 hours the previous night. She was agitated the previous evening, did better during the day, the day before at times. Alert and oriented x 3 in the morning, much more confused in the evening, was choking on foods in the afternoon. Speech therapy will be consulted the morning of 09/14/2019, and in the meantime, she will be on pureed diet. At 5:30 p.m., she seemed to "flip a switch" per nursing report and then was agitated and labile. She knew in the morning that she was at [facility] for hip fracture. REVIEW OF SYSTEMS: Hard of hearing, impaired ambulation, in wheelchair. No CV, , pulmonary, eye system symptoms on review. MENTAL STATUS EXAM: Oriented to herself. Insight, judgment, recent and remote memory, attention, concentration, fund of knowledge poor, consistent with her diagnoses. IMPRESSION: Major depressive disorder, recurrent, severe; anxiety disorder, unspecified; mild cognitive impairment; impulse control disorder. PLAN: Increase Zoloft to 75 mg a day, start Seroquel 25 mg at bedtime. Continue Xanax 0.125 mg t.i.d. ____ gradually maintain melatonin 3 mg at bedtime. Rest unchanged for now. CHITRA BRANNON MD DR: BEATRIZ/kem JOB#: [id number] / [id number]
[2019-09-16 05:30] VITALS: BP 104/60
[2019-09-16] MEDS: ALBUTEROL SULFATE 2.5 MG/3 ML NEBU. NEB SCH ×3 (06:01→17:24)
[2019-09-16] MEDS: QUEtiapine 25 MG TABLET. PO SCH ×2 (08:28→21:56)
[2019-09-16] MEDS: ASPIRIN 325 MG TABLET PO SCH (08:29)
[2019-09-16] MEDS: CALCIUM CARB/VIT D3 500/200 TABLET PO SCH ×2 (08:29→21:55)
[2019-09-16] MEDS: ALPRAZolam 0.25 MG TABLET PO SCH (08:29)
[2019-09-16] MEDS: SERTRALINE 50 MG TABLET. PO SCH (08:30)
[2019-09-16] MEDS: predniSONE 5 MG TABLET PO SCH (08:30)
[2019-09-16] MEDS: CHOLECALCIFEROL (VITAMIN D3) 1,000 UNIT TABLET PO SCH (08:30)
[2019-09-16] MEDS: METOPROLOL TART IMMED RELEASE 25 MG TABLET PO SCH ×2 (08:30→21:55)
[2019-09-16] MEDS: POLYETHYLENE GLYCOL 3350 17 GM PACKET. PO SCH (08:30)
[2019-09-16] MEDS: FAMOTIDINE 20 MG TABLET PO SCH (08:31)
[2019-09-16] MEDS: traMADol 50 MG TABLET PO PRN (08:31)
[2019-09-16] MEDS: BUDESONIDE 0.5 MG/2 ML NEBU NEB SCH (13:43)
[2019-09-16 15:46] VITALS: BP 94/62
--- NOTE | 2019-09-16 18:14 | NUR ---
Pt up in for meals Pt in afternoon so was premedicated after lunch with zydis. Has been pleasant today and compliant with meds.
[2019-09-16] MEDS: MELATONIN 3 MG TABLET PO SCH (21:55)
[2019-09-17] MEDS: ALBUTEROL SULFATE 2.5 MG/3 ML NEBU. NEB SCH ×3 (04:45→16:28)
[2019-09-17] MEDS: BUDESONIDE 0.5 MG/2 ML NEBU NEB SCH (04:45)
[2019-09-17 05:55] VITALS: BP 155/78
[2019-09-17] MEDS ORDERED: ALENDRONATE SODIUM 35 MG TABLET PO SCH (07:00)
[2019-09-17 07:24] LABS: BASO # 0.1 x10^3/uL (0.0-0.2); BASO % 1 % (0-3); EOS # 0.2 x10^3/uL (0.0-0.7); EOS % 1 % (0-3); HEMOGLOBIN 8.7 g/dL (12.0-15.5); LYMPH # 1.5 x10^3/uL (1.0-4.8); LYMPH % 12 % (24-48); MEAN CORPUSCULAR HEMOGLOBIN 30 pg (25-35); MEAN CORPUSCULAR HGB CONC 31 g/dL (31-37); MEAN CORPUSCULAR VOLUME 95 fL (79-100); MONO # 1.1 x10^3/uL (0.0-1.1); MONO % 9 % (0-9); NEUT # 9.4 x10^3uL (1.8-7.7); NEUT % 77 % (31-73); PLATELET COUNT 477 x10^3/uL (140-400); RED BLOOD COUNT 2.95 x10^6/uL (3.50-5.40); RED CELL DISTRIBUTION WIDTH 14.2 % (11.5-14.5); WHITE BLOOD COUNT 12.2 x10^3/uL (4.0-11.0)
[2019-09-17 07:43] LABS: ALBUMIN 2.4 g/dL (3.4-5.0); ALBUMIN/GLOBULIN RATIO 0.6 (1.0-1.7); CALCIUM 9.6 mg/dL (8.5-10.1); GFR 52.6; POTASSIUM 4.2 mmol/L (3.5-5.1); TOTAL BILIRUBIN 0.3 mg/dL (0.2-1.0); TOTAL PROTEIN 6.3 g/dL (6.4-8.2)
[2019-09-17] MEDS: traMADol 50 MG TABLET PO PRN ×2 (08:45→21:43)
[2019-09-17] MEDS: FAMOTIDINE 20 MG TABLET PO SCH (08:45)
[2019-09-17] MEDS: CALCIUM CARB/VIT D3 500/200 TABLET PO SCH ×2 (08:46→20:22)
[2019-09-17] MEDS: ASPIRIN 325 MG TABLET PO SCH (08:46)
[2019-09-17] MEDS: METOPROLOL TART IMMED RELEASE 25 MG TABLET PO SCH ×2 (08:46→20:22)
[2019-09-17] MEDS: predniSONE 5 MG TABLET PO SCH (08:46)
[2019-09-17] MEDS: QUEtiapine 25 MG TABLET. PO SCH ×2 (08:46→20:22)
[2019-09-17] MEDS: SERTRALINE 50 MG TABLET. PO SCH (08:47)
[2019-09-17] MEDS: CHOLECALCIFEROL (VITAMIN D3) 1,000 UNIT TABLET PO SCH (08:47)
[2019-09-17] MEDS: POLYETHYLENE GLYCOL 3350 17 GM PACKET. PO SCH (08:47)
[2019-09-17] MEDS: ALPRAZolam 0.25 MG TABLET PO SCH (08:48)
[2019-09-17 16:09] VITALS: BP 94/60
--- NOTE | 2019-09-17 18:45 | NUR ---
Pt up in wc for meals. Has been compliant with meds and cares. Pleasantly confused.
[2019-09-17 20:11] VITALS: BP 135/76
[2019-09-17] MEDS: MELATONIN 3 MG TABLET PO SCH (20:22)
--- NOTE | 2019-09-17 21:48 | PDOC ---
Exam Note: Rodolfo Note: This is a late entry for DOS 09/16/2019. Please also refer to the separate dictated note~for this date of service dictated separately.~Patient seen individually. Discussed the patient with Nursing staff reviewed the chart.~Reviewed interim history and current functioning. Reviewed vital signs,~Labs/ Radiology~and current medications noted below. Continue current treatment with the changes noted in the dictated addendum note Assessment: Vital Signs/I&O: Vital Signs Date Time Temp Pulse Resp B/P (MAP) Pulse Ox O2 Delivery O2 Flow Rate FiO2 09/17/19 21:27 98 Nasal Cannula 2.0 09/17/19 20:22 96 135/76 09/17/19 20:11 17 09/17/19 16:09 97.6 I & O 09/16/19 09/16/19 09/17/19 15:00 23:00 07:00 Intake Total 360 ml 240 ml 240 ml Balance 360 ml 240 ml 240 ml Labs: Laboratory Tests Test 09/17/19 06:44 White Blood Count 12.2 x10^3/uL (4.0-11.0) H Red Blood Count 2.95 x10^6/uL (3.50-5.40) L Hemoglobin 8.7 g/dL (12.0-15.5) L Hematocrit 28.0 % (36.0-47.0) L Mean Corpuscular Volume 95 fL (79-100) Mean Corpuscular Hemoglobin 30 pg (25-35) Mean Corpuscular Hemoglobin Concent 31 g/dL (31-37) Red Cell Distribution Width 14.2 % (11.5-14.5) Platelet Count 477 x10^3/uL (140-400) H Neutrophils (%) (Auto) 77 % (31-73) H Lymphocytes (%) (Auto) 12 % (24-48) L Monocytes (%) (Auto) 9 % (0-9) Eosinophils (%) (Auto) 1 % (0-3) Basophils (%) (Auto) 1 % (0-3) Neutrophils # (Auto) 9.4 x10^3uL (1.8-7.7) H Lymphocytes # (Auto) 1.5 x10^3/uL (1.0-4.8) Monocytes # (Auto) 1.1 x10^3/uL (0.0-1.1) Eosinophils # (Auto) 0.2 x10^3/uL (0.0-0.7) Basophils # (Auto) 0.1 x10^3/uL (0.0-0.2) Sodium Level 144 mmol/L (136-145) Potassium Level 4.2 mmol/L (3.5-5.1) Chloride Level 102 mmol/L (98-107) Carbon Dioxide Level 38 mmol/L (21-32) H Anion Gap 4 (6-14) L Blood Urea Nitrogen 26 mg/dL (7-20) H Creatinine 1.0 mg/dL (0.6-1.0) Estimated GFR (Cockcroft-Gault) 52.6 BUN/Creatinine Ratio 26 (6-20) H Glucose Level 136 mg/dL (70-99) H Calcium Level 9.6 mg/dL (8.5-10.1) Total Bilirubin 0.3 mg/dL (0.2-1.0) Aspartate Amino Transferase (AST) 37 U/L (15-37) Alanine Aminotransferase (ALT) 38 U/L (14-59) Alkaline Phosphatase 131 U/L (46-116) H Total Protein 6.3 g/dL (6.4-8.2) L Albumin 2.4 g/dL (3.4-5.0) L Albumin/Globulin Ratio 0.6 (1.0-1.7) L Current Medications: Meds: Current Medications Medications (Trade) Dose Ordered Sig/Abiel Route PRN Reason Start Time Stop Time Status Last Admin Dose Admin Alendronate Sodium (Fosamax) 70 mg WEEKLYAC PO 09/17/19 07:00 09/17/19 06:10 I have reviewed the current psychotropics carefully including drug interactions. Risk benefit ratio favors no change other than as noted in my dictated progress note. Diagnosis: Problems: (1) Anxiety disorder (2) Dementia in Alzheimer's disease with delusions (3) Dementia in Alzheimer's disease with depression (4) Dementia, vascular, with delusions (5) Dementia, vascular, with depression (6) Impulse control disorder (7) [place] (hard of hearing) CHITRA BRANNON MD Sep 17, 2019 21:48
--- NOTE | 2019-09-18 00:34 | NUR ---
Pt sitting up in w/c in the day room at shift change. Pt calm, pleasant, and interactive this evening. Pt cooperative with assessment and compliant with medications crushed in pudding. PRN Tramadol administered for c/o bilateral leg and foot pain.
[2019-09-18 05:52] VITALS: BP 108/67
[2019-09-18] MEDS: CALCIUM CARB/VIT D3 500/200 TABLET PO SCH ×2 (08:27→19:54)
[2019-09-18] MEDS: METOPROLOL TART IMMED RELEASE 25 MG TABLET PO SCH ×2 (08:27→19:54)
[2019-09-18] MEDS: ASPIRIN 325 MG TABLET PO SCH (08:27)
[2019-09-18] MEDS: POLYETHYLENE GLYCOL 3350 17 GM PACKET. PO SCH (08:27)
[2019-09-18] MEDS: QUEtiapine 25 MG TABLET. PO SCH ×2 (08:28→19:54)
[2019-09-18] MEDS: predniSONE 5 MG TABLET PO SCH (08:28)
[2019-09-18] MEDS: FAMOTIDINE 20 MG TABLET PO SCH (08:28)
[2019-09-18] MEDS: CHOLECALCIFEROL (VITAMIN D3) 1,000 UNIT TABLET PO SCH (08:29)
[2019-09-18] MEDS: SERTRALINE 50 MG TABLET. PO SCH (08:29)
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
[2019-09-18] MEDS: BUDESONIDE 0.5 MG/2 ML NEBU NEB SCH ×3 (10:26→22:58)
[2019-09-18] MEDS: ALBUTEROL SULFATE 2.5 MG/3 ML NEBU. NEB SCH ×3 (10:26→22:59)
--- NOTE | 2019-09-18 11:57 | NUR ---
Pt is calm, cooperative, compliant. No agitation, no aggression, no hallucinations or delusions. She is compliant with her medication and assessment.
[2019-09-18 16:01] VITALS: BP 93/58
[2019-09-18 19:45] VITALS: BP 111/61
[2019-09-18] MEDS: MELATONIN 3 MG TABLET PO SCH (19:54)
--- NOTE | 2019-09-18 20:23 | PDOC ---
Exam Note: Rodolfo Note: Please also refer to the separate dictated note~for this date of service dictated separately.~Patient seen individually. Discussed the patient with Nursing staff reviewed the chart.~Reviewed interim history and current functioning. Reviewed vital signs,~Labs/ Radiology~and current medications noted below. Continue current treatment with the changes noted in the dictated addendum note Assessment: Vital Signs/I&O: Vital Signs Date Time Temp Pulse Resp B/P (MAP) Pulse Ox O2 Delivery O2 Flow Rate FiO2 09/18/19 19:54 132 111/61 09/18/19 17:20 97 Nasal Cannula 2.0 09/18/19 16:01 97.6 16 I & O 09/17/19 09/17/19 09/18/19 14:59 22:59 06:59 Intake Total 720 ml 580 ml Balance 720 ml 580 ml Current Medications: I have reviewed the current psychotropics carefully including drug interactions. Risk benefit ratio favors no change other than as noted in my dictated progress note. Diagnosis: Problems: (1) Anxiety disorder (2) Dementia in Alzheimer's disease with delusions (3) Dementia in Alzheimer's disease with depression (4) Dementia, vascular, with delusions (5) Dementia, vascular, with depression (6) Impulse control disorder (7) [place] (hard of hearing) CHITRA BRANNON MD Sep 18, 2019 20:23
--- NOTE | 2019-09-19 01:01 | NUR ---
Pt sitting quietly in the day room at shift change. Pt calm, pleasantly confused, and delusional. Pt thinks she is leaving tonight and needs to get home. Pt cooperative with assessment and compliant with medications administered crushed in pudding.
--- NOTE | 2019-09-19 01:55 | PN ---
DATE: 09/16/2019 PSYCHIATRIC PROGRESS NOTE This late entry 09/16/2019 covers elements not covered in my initial note. SUBJECTIVE: I met with the patient in the evening. The patient slept 7-1/4 hours previous night. She has been confused, withdrawn, somewhat grouchy, irritable. She pulls off her oxygen at this time. She gets much worse. Desats quite rapidly. REVIEW OF SYSTEMS: No CV, , pulmonary, eye, ENT system symptoms on review. Gait unsteady in wheelchair, shortness of breath, on O2 supplements. Hard of hearing. MENTAL STATUS EXAM: Oriented to herself. Insight, judgment, recent and remote memory, attention, concentration, fund of knowledge poor consistent with her diagnosis mentioned in my initial note. PLAN: No change from initial note. MAN Violeta BRANNON MD DR: BEATRIZ/kem JOB#: [id number] / [id number]
--- NOTE | 2019-09-19 02:58 | PN ---
DATE: 09/17/2019 PSYCHIATRIC PROGRESS NOTE This late entry 09/17/2019 covers elements not covered in my initial note. SUBJECTIVE: I met with the patient in the evening of 09/17/2019. The patient slept 6-3/4 hours previous night, has been started on Seroquel 12.5 mg at 9:00 a.m., which seems to be helping. Does complain of pain consequent to her hip fracture. Impaired ambulation, in wheelchair; shortness of breath, on O2 supplements. REVIEW OF SYSTEMS: No CV, GI, , ENT system symptoms on review, hard of hearing. MENTAL STATUS EXAM: Oriented to herself. Insight, judgment, recent memory is impaired, remote is better, though she is more oriented than she appears on the surface consequent to her hard of hearing status. No active suicidal or homicidal ideation. Mood and affect remain somewhat anxious, labile. LABORATORY DATA: Reviewed. IMPRESSION: Unchanged from initial note. PLAN: No change from initial note. CHITRA BRANNON MD DR: BEATRIZ/kem JOB#: [id number] / [id number]
[2019-09-19] MEDS: traMADol 50 MG TABLET PO PRN ×2 (05:24→20:02)
[2019-09-19 06:17] VITALS: BP 117/73
[2019-09-19] MEDS: ALBUTEROL SULFATE 2.5 MG/3 ML NEBU. NEB SCH ×4 (06:18→19:59)
[2019-09-19 07:23] LABS: HEMATOCRIT 27.2 % (36.0-47.0); HEMOGLOBIN 8.5 g/dL (12.0-15.5)
[2019-09-19] MEDS: BUDESONIDE 0.5 MG/2 ML NEBU NEB SCH ×2 (10:10→19:59)
[2019-09-19] MEDS: ASPIRIN 325 MG TABLET PO SCH (11:05)
[2019-09-19] MEDS: predniSONE 5 MG TABLET PO SCH (11:06)
[2019-09-19] MEDS: POLYETHYLENE GLYCOL 3350 17 GM PACKET. PO SCH (11:06)
[2019-09-19] MEDS: FAMOTIDINE 20 MG TABLET PO SCH (11:06)
[2019-09-19] MEDS: METOPROLOL TART IMMED RELEASE 25 MG TABLET PO SCH ×2 (11:06→20:02)
[2019-09-19] MEDS: CALCIUM CARB/VIT D3 500/200 TABLET PO SCH ×2 (11:06→20:01)
[2019-09-19] MEDS: CHOLECALCIFEROL (VITAMIN D3) 1,000 UNIT TABLET PO SCH (11:07)
[2019-09-19] MEDS: SERTRALINE 50 MG TABLET. PO SCH (11:07)
[2019-09-19] MEDS: QUEtiapine 25 MG TABLET. PO SCH ×2 (11:07→20:01)
--- NOTE | 2019-09-19 12:05 | NUR ---
Patient slept in until mid morning, took medications whole allowed for morning assessment. Patient was pleasant, smiling at staff. Was participating in morning group. No agitation noted, will continue to monitor.
--- NOTE | 2019-09-19 15:05 | NUR ---
Patient was getting a little restless and anxious in the dayroom with staff. PRN joel given @[id number]. Patient took this whole, is sitting in the dayroom visiting with staff. Will continue to monitor.
[2019-09-19 15:47] VITALS: BP 103/62
[2019-09-19 19:59] VITALS: BP 128/65
[2019-09-19] MEDS: MELATONIN 3 MG TABLET PO SCH (20:01)
--- NOTE | 2019-09-19 20:47 | PDOC ---
Exam Note: Rodolfo Note: Please also refer to the separate dictated note~for this date of service dictated separately.~Patient seen individually. Discussed the patient with Nursing staff reviewed the chart.~Reviewed interim history and current functioning. Reviewed vital signs,~Labs/ Radiology~and current medications noted below. Continue current treatment with the changes noted in the dictated addendum note Assessment: Vital Signs/I&O: Vital Signs Date Time Temp Pulse Resp B/P (MAP) Pulse Ox O2 Delivery O2 Flow Rate FiO2 09/19/19 20:02 20 96 Nasal Cannula 2.0 09/19/19 20:02 104 128/65 09/19/19 15:47 98.0 I & O 09/18/19 09/18/19 09/19/19 14:59 22:59 06:59 Intake Total 720 ml 120 ml 100 ml Balance 720 ml 120 ml 100 ml Labs: Laboratory Tests Test 09/19/19 06:47 Hemoglobin 8.5 g/dL (12.0-15.5) L Hematocrit 27.2 % (36.0-47.0) L Current Medications: I have reviewed the current psychotropics carefully including drug interactions. Risk benefit ratio favors no change other than as noted in my dictated progress note. Diagnosis: Problems: (1) Anxiety disorder (2) Dementia in Alzheimer's disease with delusions (3) Dementia in Alzheimer's disease with depression (4) Dementia, vascular, with delusions (5) Dementia, vascular, with depression (6) Impulse control disorder (7) [place] (hard of hearing) CHITRA BRANNON MD Sep 19, 2019 20:47
[2019-09-19] MEDS: PENICILLIN G BENZATHINE LA 1,200,000 UNIT/2 ML DISP.SYRIN. IM SCH (21:01)
--- NOTE | 2019-09-20 00:18 | NUR ---
Pt sitting up in w/c in the day room at shift change. Pt irritable, agitated, and resistive this evening. Pt verbally and physically aggressive with cares, attempting to strike and kick staff. Pt attempted to kick and grab this nurse's face during HS cares and IM administration. Pt stated "fuck you, get the fuck out" "you bitch"; pt making other vulgar and verbally aggressive statements towards staff. Pt resistive with medications crushed but eventually took them with encouragement.
[2019-09-20] MEDS: ALBUTEROL SULFATE 2.5 MG/3 ML NEBU. NEB SCH ×4 (05:19→21:43)
[2019-09-20 05:48] VITALS: BP 117/70
--- NOTE | 2019-09-20 06:00 | NUR ---
Nursing Note- Late Entry: This nurse was informed by Padmaja PAN, that she was asked by Lashaun PRIDE to assist pt to the BR. Upon entering pt's room, Padmaja PAN reports that Lashaun PRIDE had pt in standing position and immediately let go of the pt when Padmaja PAN entered the room and pt fell to the floor landing on her bottom. Lashaun PRIDE left the pt's room and Padmaja PAN helped pt up off the floor and to the BR after completing assessment to which no injury was noted and pt denies pain, FROM all extremities. Pt was assisted with AM cares and brought to the day room; she continues to deny pain or discomfort. Nursing supervisor of way notified of the event and responded to the unit.
[2019-09-20] MEDS: SERTRALINE 50 MG TABLET. PO SCH (08:13)
[2019-09-20] MEDS: ASPIRIN 325 MG TABLET PO SCH (08:13)
[2019-09-20] MEDS: QUEtiapine 25 MG TABLET. PO SCH ×2 (08:13→20:13)
[2019-09-20] MEDS: CHOLECALCIFEROL (VITAMIN D3) 1,000 UNIT TABLET PO SCH (08:13)
[2019-09-20] MEDS: CALCIUM CARB/VIT D3 500/200 TABLET PO SCH ×2 (08:13→20:12)
[2019-09-20] MEDS: predniSONE 5 MG TABLET PO SCH (08:14)
[2019-09-20] MEDS: FAMOTIDINE 20 MG TABLET PO SCH (08:14)
[2019-09-20] MEDS: POLYETHYLENE GLYCOL 3350 17 GM PACKET. PO SCH (08:14)
[2019-09-20] MEDS: METOPROLOL TART IMMED RELEASE 25 MG TABLET PO SCH ×2 (08:14→20:12)
[2019-09-20] MEDS: BUDESONIDE 0.5 MG/2 ML NEBU NEB SCH ×2 (10:39→21:48)
--- NOTE | 2019-09-20 13:33 | NUR ---
Nursing Note Pt urinated and smells like ketones, also breath heavy with ketones, stat labs ordered CBC, CMP, CK, ammonia. UA to be collected. Stool collected and sent off.
[2019-09-20 13:44] LABS: BASO # 0.1 x10^3/uL (0.0-0.2); BASO % 1 % (0-3); EOS # 0.1 x10^3/uL (0.0-0.7); EOS % 0 % (0-3); HEMATOCRIT 30.7 % (36.0-47.0); HEMOGLOBIN 9.4 g/dL (12.0-15.5); LYMPH # 0.8 x10^3/uL (1.0-4.8); LYMPH % 4 % (24-48); MEAN CORPUSCULAR HEMOGLOBIN 29 pg (25-35); MEAN CORPUSCULAR HGB CONC 31 g/dL (31-37); MEAN CORPUSCULAR VOLUME 96 fL (79-100); MONO # 0.7 x10^3/uL (0.0-1.1); MONO % 3 % (0-9); NEUT # 19.4 x10^3uL (1.8-7.7); NEUT % 92 % (31-73); PLATELET COUNT 526 x10^3/uL (140-400); RED BLOOD COUNT 3.21 x10^6/uL (3.50-5.40); RED CELL DISTRIBUTION WIDTH 14.7 % (11.5-14.5); WHITE BLOOD COUNT 21.1 x10^3/uL (4.0-11.0)
[2019-09-20 13:59] LABS: ALBUMIN 2.8 g/dL (3.4-5.0); ALBUMIN/GLOBULIN RATIO 0.6 (1.0-1.7); CALCIUM 9.2 mg/dL (8.5-10.1); GFR 52.6; POTASSIUM 4.6 mmol/L (3.5-5.1); TOTAL BILIRUBIN 0.3 mg/dL (0.2-1.0); TOTAL PROTEIN 7.2 g/dL (6.4-8.2)
--- NOTE | 2019-09-20 14:30 | NUR ---
NURSING NOTE: PATIENT HAS BEEN CALM AND COOPERATIVE WITH STAFF UNTIL 1430. AT 1430 PATIENT BECAME ANGRY WITH STAFF AND OTHER PATIENTS. PATIENT ESCORTED BACK TO HER ROOM TO GIVE TIME TO CALM DOWN.
--- NOTE | 2019-09-20 15:54 | NUR ---
NURSING NOTES: PATIENT NOTED TO BE YELLING FOR HELP IN HER ROOM. UPON ARRIVAL TO ROOM PATIENT IS NOTED TO BE ON FLOOR LYING ON LEFT SIDE FACING THE DOORWAY, W/C BEHIND THE PATIENT. WHEN ASKED WHAT THE PATIENT WAS DOING AT TIME OF FALL SHE STATED SHE WAS STANDING UP TO GO INTO THE BATHROOM. NO OPEN AREAS ON SKIN OR BRUISING NOTED. NO PAIN ON R.O.M. TO JOINTS. PATIENT STATES HER LEFT ANKLE IS THE ONLY THING THAT HURTS BUT DID NOT HURT WHEN NURSE TOUCHED OR DID R.O.M. ON IT. PATIENT STATES SHE DID NOT HIT HER HEAD AND JUST WANTS TO GO TO BED. PATIENT ASSISTED BY STAFF BACK TO HER W/C AND PLACED IN DAY ROOM WITH W/C ALARM ON.
[2019-09-20 16:02] VITALS: BP 129/53
[2019-09-20 16:32] LABS: % LYMPHS 4 % (24-48); % MONOS 4 % (0-10); % SEGS 92 % (35-66)
[2019-09-20 16:33] LABS: PLT ESTIMATE INCREASED (ADEQUATE)
[2019-09-20 18:14] LABS: BILIRUBIN,URINE NEG (NEG); CLARITY,URINE CLEAR; COLOR,URINE YELLOW; GLUCOSE,URINE NEG (NEG)
[2019-09-20 18:15] LABS: BACTERIA,URINE FEW /HPF (0-FEW); NITRITE,URINE NEG (NEG); SQUAMOUS EPITHELIAL CELL,UR MOD /LPF; UROBILINOGEN,URINE 0.2 mg/dL (0.2 mg/dL); WBC,URINE OCC /HPF (0-4)
[2019-09-20 19:22] VITALS: BP 137/83
[2019-09-20 20:07] LABS: FECAL OB PT NEGATIVE (NEG)
[2019-09-20] MEDS: MELATONIN 3 MG TABLET PO SCH (20:12)
[2019-09-20] MEDS: traMADol 50 MG TABLET PO PRN (20:16)
--- NOTE | 2019-09-20 20:35 | PDOC ---
Exam Note: Rodolfo Note: Please also refer to the separate dictated note~for this date of service dictated separately.~Patient seen individually. Discussed the patient with Nursing staff reviewed the chart.~Reviewed interim history and current functioning. Reviewed vital signs,~Labs/ Radiology~and current medications noted below. Continue current treatment with the changes noted in the dictated addendum note Assessment: Vital Signs/I&O: Vital Signs Date Time Temp Pulse Resp B/P (MAP) Pulse Ox O2 Delivery O2 Flow Rate FiO2 09/20/19 20:16 92 09/20/19 20:12 108 137/83 09/20/19 19:22 98.3 16 Nasal Cannula 2.0 I & O 09/19/19 09/19/19 09/20/19 15:00 23:00 07:00 Intake Total 120 ml 360 ml 80 ml Balance 120 ml 360 ml 80 ml Labs: Laboratory Tests Test 09/20/19 13:34 09/20/19 14:18 09/20/19 16:45 09/20/19 17:38 White Blood Count 21.1 x10^3/uL (4.0-11.0) H Red Blood Count 3.21 x10^6/uL (3.50-5.40) L Hemoglobin 9.4 g/dL (12.0-15.5) L Hematocrit 30.7 % (36.0-47.0) L Mean Corpuscular Volume 96 fL (79-100) Mean Corpuscular Hemoglobin 29 pg (25-35) Mean Corpuscular Hemoglobin Concent 31 g/dL (31-37) Red Cell Distribution Width 14.7 % (11.5-14.5) H Platelet Count 526 x10^3/uL (140-400) H Neutrophils (%) (Auto) 92 % (31-73) H Lymphocytes (%) (Auto) 4 % (24-48) L Monocytes (%) (Auto) 3 % (0-9) Eosinophils (%) (Auto) 0 % (0-3) Basophils (%) (Auto) 1 % (0-3) Neutrophils # (Auto) 19.4 x10^3uL (1.8-7.7) H Lymphocytes # (Auto) 0.8 x10^3/uL (1.0-4.8) L Monocytes # (Auto) 0.7 x10^3/uL (0.0-1.1) Eosinophils # (Auto) 0.1 x10^3/uL (0.0-0.7) Basophils # (Auto) 0.1 x10^3/uL (0.0-0.2) Segmented Neutrophils % 92 % (35-66) H Lymphocytes % 4 % (24-48) L Monocytes % 4 % (0-10) Platelet Estimate Increased (ADEQUATE) Large Platelets Present Giant Platelets Present Sodium Level 142 mmol/L (136-145) Potassium Level 4.6 mmol/L (3.5-5.1) Chloride Level 98 mmol/L (98-107) Carbon Dioxide Level 34 mmol/L (21-32) H Anion Gap 10 (6-14) Blood Urea Nitrogen 32 mg/dL (7-20) H Creatinine 1.0 mg/dL (0.6-1.0) Estimated GFR (Cockcroft-Gault) 52.6 BUN/Creatinine Ratio 32 (6-20) H Glucose Level 162 mg/dL (70-99) H Calcium Level 9.2 mg/dL (8.5-10.1) Total Bilirubin 0.3 mg/dL (0.2-1.0) Aspartate Amino Transferase (AST) 38 U/L (15-37) H Alanine Aminotransferase (ALT) 67 U/L (14-59) H Alkaline Phosphatase 164 U/L (46-116) H Ammonia < 10 mcmol/L (11-34) L Creatine Kinase 70 U/L (26-192) Total Protein 7.2 g/dL (6.4-8.2) Albumin 2.8 g/dL (3.4-5.0) L Albumin/Globulin Ratio 0.6 (1.0-1.7) L Lactic Acid Level 2.3 mmol/L (0.4-2.0) H 1.4 mmol/L (0.4-2.0) Urine Collection Type Unknown Urine Color Yellow Urine Clarity Clear Urine pH 7.5 Urine Specific [place] 1.015 Urine Protein Neg (NEG-TRACE) Urine Glucose (UA) Neg mg/dL (NEG) Urine Ketones (Stick) Neg mg/dL (NEG) Urine Blood Trace (NEG) Urine Nitrite Neg (NEG) Urine Bilirubin Neg (NEG) Urine Urobilinogen Dipstick 0.2 mg/dL (0.2 mg/dL) Urine Leukocyte Esterase Neg (NEG) Urine RBC 1-2 /HPF (0-2) Urine WBC Occ /HPF (0-4) Urine Squamous Epithelial Cells Mod /LPF Urine Bacteria Few /HPF (0-FEW) Test 09/20/19 19:56 Stool Occult Blood Negative (NEG) Current Medications: I have reviewed the current psychotropics carefully including drug interactions. Risk benefit ratio favors no change other than as noted in my dictated progress note. Diagnosis: Problems: (1) Anxiety disorder (2) Dementia in Alzheimer's disease with delusions (3) Dementia in Alzheimer's disease with depression (4) Dementia, vascular, with delusions (5) Dementia, vascular, with depression (6) Impulse control disorder (7) [place] (hard of hearing) CHITRA BRANNON MD Sep 20, 2019 20:35
--- NOTE | 2019-09-20 20:40 | PN ---
DATE: 09/18/2019 PSYCHIATRIC PROGRESS NOTE This late entry 09/18/2019 covers elements not covered in my initial note. SUBJECTIVE: I met with the patient in the evening of 09/18/2019. Per MAXIM Delacruz, the patient slept 6-1/2 hours previous night. She was restless in the evening, received Zyprexa at 2:58 p.m. Hemoglobin 8.5. Stool will be checked for occult blood. Deferred to Dr. Gupta. REVIEW OF SYSTEMS: No CV, , pulmonary, eye, ENT system symptoms on review. Reliability poor. MENTAL STATUS EXAM: Oriented to herself. Insight, judgment, recent and remote memory, attention, concentration, fund of knowledge poor consistent with her diagnosis mentioned in my initial note. PLAN: No change from initial note. MAN Violeta BRANNON MD DR: BEATRIZ/kem JOB#: [id number] / [id number]
--- NOTE | 2019-09-20 21:22 | PN ---
DATE: 09/19/2019 PSYCHIATRIC PROGRESS NOTE This late entry 09/19/2019 covers elements not covered in my initial note. SUBJECTIVE: I met with the patient in the evening. The patient slept 6-1/2 hours previous night per MAXIM Delacruz. She remains intermittently restless, confused. Hemoglobin is low. REVIEW OF SYSTEMS: No CV, , pulmonary, eye system symptoms on review. Reliability poor. MENTAL STATUS EXAM: Oriented to herself. Insight, judgment, recent and remote memory, attention, concentration, fund of knowledge poor, consistent with her diagnosis mentioned in my initial note. PLAN: No change from initial note. MAN Violeta BRANNON MD DR: BEATRIZ/kem JOB#: [id number] / [id number]
--- NOTE | 2019-09-20 22:16 | NUR ---
Pt sitting up in the day room at shift change. Pt calm, pleasant, interactive, and appropriate this evening. Pt cooperative with assessment and compliant with medications administered crushed in pudding as requested. Left ankle x-ray ordered and completed this evening d/t swelling, bruising, and c/o pain.
--- NOTE | 2019-09-21 04:39 | RAD ---
ANKLE LEFT 3V History: Injury. Lateral swelling and pain. Technique: 3 views left ankle. Comparison: None. Findings: Comminuted mildly displaced left lateral malleolus fracture. Lateral ankle soft tissue swelling. Irregularity of the medial malleolus on AP view. Symmetric ankle mortise. Vascular calcifications. Impression: 1. Acute comminuted mildly displaced left lateral malleolus fracture. 2. Irregularity of the medial malleolus, may represent additional fracture. Recommend correlation with point tenderness. 3. Ankle soft tissue swelling. Electronically signed by: Levi Yoon DO (09/21/2019 4:37 AM) [facility]
[2019-09-21] MEDS: BUDESONIDE 0.5 MG/2 ML NEBU NEB SCH ×2 (05:08→23:15)
[2019-09-21] MEDS: ALBUTEROL SULFATE 2.5 MG/3 ML NEBU. NEB SCH ×4 (05:08→23:15)
--- NOTE | 2019-09-21 05:11 | NUR ---
X-ray results show an acute comminuted mildly [id number] left malleolus fracture. Dr. Gupta notified of results and stated he will have to talk to an orthopedic surgeon in regards to the results and to keep the pt in bed for now and off of her ankle.
[2019-09-21] MEDS: traMADol 50 MG TABLET PO PRN (05:53)
[2019-09-21 05:54] VITALS: BP 143/53
--- NOTE | 2019-09-21 08:53 | RAD ---
Single view of the chest. 09/21/2019 8:00 AM Indication: Elevated white blood cell count lactic acid. Comparison: Chest radiograph September 11, 2019 Findings: No pneumothorax is identified. Right basilar scarring versus trace effusion is stable.. Diffuse interstitial coarsening is similar to comparison study. Multiple ovoid opacities are seen within density suggesting calcification. This could represent calcified granulomas, pleural plaques, or healed rib fractures. Heart size is top normal and stable. Aortic calcification noted. IMPRESSION: 1.Overall grossly stable radiographic appearance of the chest. 2. Right basilar scarring versus trace effusion is stable. Electronically signed by: Joe Yadav MD (09/21/2019 8:50 AM) [facility]
--- NOTE | 2019-09-21 09:40 | NUR ---
WEEKLY ACTIVITY THERAPY NOTE Date of Admission: 09/11/2019 Date of AT Assessment: 09/14/2019 Goal aimed: to increase socialization and engagement Initial Goal: Pt. will engage in two Activity Therapy groups per week. Weekly progress towards goal: 02/07 Group participation level: varied Weekly highlights: enjoyed horseshoes on Wednesday afternoon, took time to aim. Behaviors observed: increased restlessness in afternoons: fidgeting with nasal canula, yelling out, trying to get out of wheelchair, sleeping often, racial slurs Wednesday Plan: no change to goal Beneficial adaptations: oxygen concentrator, staff support, use of pocketalker, exercise groups
--- NOTE | 2019-09-21 10:35 | NUR ---
Pt is calm, cooperative, confused, and compliant. No agitation, no aggression, no hallucinations, no delusions.
[2019-09-21 10:43] VITALS: BP 111/64
--- NOTE | 2019-09-21 10:46 | NUR ---
Informed Dr. Gupta of pts VS and pt condition. Dr. Gupta stated he will speak with orthopedics at [facility] and get back with me. No new orders at this time.
[2019-09-21] MEDS: ASPIRIN 325 MG TABLET PO SCH (10:57)
[2019-09-21] MEDS: METOPROLOL TART IMMED RELEASE 25 MG TABLET PO SCH ×2 (10:57→20:34)
[2019-09-21] MEDS: POLYETHYLENE GLYCOL 3350 17 GM PACKET. PO SCH (10:57)
[2019-09-21] MEDS: CHOLECALCIFEROL (VITAMIN D3) 1,000 UNIT TABLET PO SCH (10:58)
[2019-09-21] MEDS: QUEtiapine 25 MG TABLET. PO SCH ×2 (10:58→20:34)
[2019-09-21] MEDS: predniSONE 5 MG TABLET PO SCH (10:58)
[2019-09-21] MEDS: SERTRALINE 50 MG TABLET. PO SCH (10:58)
[2019-09-21] MEDS: CALCIUM CARB/VIT D3 500/200 TABLET PO SCH ×2 (10:58→20:34)
[2019-09-21] MEDS: FAMOTIDINE 20 MG TABLET PO SCH (10:58)
--- NOTE | 2019-09-21 11:46 | NUR ---
CHANDANA contacted JERRY Faith at [facility], to discuss pt. progress. Vianney did shared if pt. returns on Seroquel, they would need mercedes orders and at her facility they would be unable to give her PRN anti psychotics and PRN anti anxiety medications. CHANDANA also shared pt. did have a fall and has a left ankle fracture, and has an elevated white count. CHANDANA spoke to pt. daughter, Magaly, regarding the above information. Magaly shared she doesn't really want her mother on Seroquel. CHANDANA will leave note for the doctor with this information.
--- NOTE | 2019-09-21 11:54 | NUR ---
WEEKLY NOTE Pt. has been eating 60% of meals and sleeping an average of 6 hours. Pt. has been calm and cooperative but tends to have behaviors in the afternoon. Pt. did have fall, has a left ankle fracture, and an elevated white count. Pt. is scheduled to discharge the later part of next week, back to [facility].
--- NOTE | 2019-09-21 12:07 | NUR ---
CHANDANA faxed update pt. notes to JERRY Faith at [facility].
[2019-09-21] MEDS: MELATONIN 3 MG TABLET PO SCH (20:34)
--- NOTE | 2019-09-21 20:36 | PDOC ---
Exam Note: Rodolfo Note: Please also refer to the separate dictated note~for this date of service dictated separately.~Patient seen individually. Discussed the patient with Nursing staff reviewed the chart.~Reviewed interim history and current functioning. Reviewed vital signs,~Labs/ Radiology~and current medications noted below. Continue current treatment with the changes noted in the dictated addendum note Assessment: Vital Signs/I&O: Vital Signs Date Time Temp Pulse Resp B/P (MAP) Pulse Ox O2 Delivery O2 Flow Rate FiO2 09/21/19 20:34 107 111/64 09/21/19 16:52 Nasal Cannula 2.0 09/21/19 10:43 97.8 18 93 I & O 09/20/19 09/20/19 09/21/19 15:00 23:00 07:00 Intake Total 480 ml 360 ml Balance 480 ml 360 ml Current Medications: I have reviewed the current psychotropics carefully including drug interactions. Risk benefit ratio favors no change other than as noted in my dictated progress note. Diagnosis: Problems: (1) Anxiety disorder (2) Dementia in Alzheimer's disease with delusions (3) Dementia in Alzheimer's disease with depression (4) Dementia, vascular, with delusions (5) Dementia, vascular, with depression (6) Impulse control disorder (7) [place] (hard of hearing) CHITRA BRANNON MD Sep 21, 2019 20:36
--- NOTE | 2019-09-21 22:36 | NUR ---
Nursing note: Assumed care of pt in her room. She is agitated and refusing meds. Refusing to keep O2 in place. Pt is beligerent and non-compliant. No c/o pain.
[2019-09-22] MEDS: ALBUTEROL SULFATE 2.5 MG/3 ML NEBU. NEB SCH ×3 (06:12→15:44)
[2019-09-22 06:32] VITALS: BP 120/64
[2019-09-22] MEDS: POLYETHYLENE GLYCOL 3350 17 GM PACKET. PO SCH (08:46)
[2019-09-22] MEDS: CALCIUM CARB/VIT D3 500/200 TABLET PO SCH ×2 (08:46→19:53)
[2019-09-22] MEDS: CHOLECALCIFEROL (VITAMIN D3) 1,000 UNIT TABLET PO SCH (08:47)
[2019-09-22] MEDS: SERTRALINE 50 MG TABLET. PO SCH (08:47)
[2019-09-22] MEDS: ASPIRIN 325 MG TABLET PO SCH (08:48)
[2019-09-22] MEDS: FAMOTIDINE 20 MG TABLET PO SCH (08:48)
[2019-09-22] MEDS: predniSONE 5 MG TABLET PO SCH (08:48)
[2019-09-22] MEDS: METOPROLOL TART IMMED RELEASE 25 MG TABLET PO SCH ×2 (08:48→19:54)
[2019-09-22] MEDS: QUEtiapine 25 MG TABLET. PO SCH (08:48)
[2019-09-22] MEDS: BUDESONIDE 0.5 MG/2 ML NEBU NEB SCH (10:56)
--- NOTE | 2019-09-22 12:36 | PN ---
DATE: 09/20/2019 This late entry 09/20 covers elements not covered in my initial note. SUBJECTIVE: I met with the patient evening of 09/20. Per Fan RN, the patient slept 7-1/4 hours previous night. She has been anxious, restless, name calling. She dropped herself to the floor, placed in a room, verbally aggressive, making statements, "I don't care, shit." Lactic acid is increased. Dr. Gupta is addressing this. She received Zyprexa at 1455. REVIEW OF SYSTEMS: Ambulation impaired, in wheelchair. No CV, , pulmonary, eye, ENT system symptoms on review. Reliability poor. MENTAL STATUS EXAM: Oriented to herself. Insight, judgment, recent and remote memory, attention, concentration, fund of knowledge poor, consistent with her diagnosis mentioned in my initial note. PLAN: No change from initial note. We will defer medical followup to Dr. uGpta. CHITRA BRANNON MD DR: BEATRIZ/kem JOB#: [id number] / [id number]
[2019-09-22 15:57] VITALS: BP 105/64
--- NOTE | 2019-09-22 16:09 | NUR ---
Patient has been calm, compliant, and pleasantly confused during this shift. She has attempted to stand on her own at times, but has been cooperative with redirection. Patient has been in the day room most of the shift, participating in groups. Will continue to monitor and report to oncoming shift.
--- NOTE | 2019-09-22 19:30 | PN ---
DATE: 09/21/2019 PSYCHIATRIC PROGRESS NOTE This late entry 09/21/2019 covers elements not covered in my initial note. SUBJECTIVE: I met with the patient in the evening and staffed at a treatment team meeting with the entire team in the morning. The patient slept 6-1/2 hours previous night. She had a fall previous night, has a left ankle fracture. WBC increased to 21.1. Dr. Gupta is working this up with a chest x-ray. I will defer medical workup to Dr. Gupta. REVIEW OF SYSTEMS: Ambulation impaired. No CV, , pulmonary, eye system symptoms on review, somewhat hard of hearing. MENTAL STATUS EXAMINATION: Oriented to herself, situation at times. Speech moderate latency, often responses monosyllabic. Abstraction fair, computation impaired, language function intact, attention span short. Mood and affect somewhat withdrawn. LABORATORY DATA: Reviewed. IMPRESSION: Unchanged from initial note. PLAN: I have received a note from Hannah, social service staff that the facility would prefer the patient not to be on Seroquel and the daughter would prefer that as well. She has done much better on the Seroquel per her Fernanda RN, but starting 09/22/2019, we will change the Seroquel to BuSpar 5 mg 3 times a day. She does have ankle fracture and for the evening of 09/21/2019, we leave everything unchanged and she is also having a medical workup as noted above. No further changes for now. CHITRA BRANNON MD DR: BEATRIZ/kem JOB#: [id number] / [id number]
[2019-09-22] MEDS: busPIRone 5 MG TABLET. PO SCH (19:53)
[2019-09-22] MEDS: MELATONIN 3 MG TABLET PO SCH (19:53)
--- NOTE | 2019-09-22 20:48 | PDOC ---
Exam Note: Rodolfo Note: Please also refer to the separate dictated note~for this date of service dictated separately.~Patient seen individually. Discussed the patient with Nursing staff reviewed the chart.~Reviewed interim history and current functioning. Reviewed vital signs,~Labs/ Radiology~and current medications noted below. Continue current treatment with the changes noted in the dictated addendum note Assessment: Vital Signs/I&O: Vital Signs Date Time Temp Pulse Resp B/P (MAP) Pulse Ox O2 Delivery O2 Flow Rate FiO2 09/22/19 19:54 98 105/64 09/22/19 15:57 97.0 16 98 09/22/19 15:45 Nasal Cannula 2.0 I & O 0 09/21/19 09/21/19 09/22/19 15:00 23:00 07:00 Intake Total 0 ml 0 ml 0 ml Balance 0 ml 0 ml 0 ml Current Medications: Meds: Current Medications Medications (Trade) Dose Ordered Sig/Abiel Route PRN Reason Start Time Stop Time Status Last Admin Dose Admin Buspirone HCl (Buspar) 5 mg TID PO 09/22/19 21:00 09/22/19 19:53 I have reviewed the current psychotropics carefully including drug interactions. Risk benefit ratio favors no change other than as noted in my dictated progress note. Diagnosis: Problems: (1) Anxiety disorder (2) Dementia in Alzheimer's disease with delusions (3) Dementia in Alzheimer's disease with depression (4) Dementia, vascular, with delusions (5) Dementia, vascular, with depression (6) Impulse control disorder (7) [place] (hard of hearing) CHITRA BRANNNO MD Sep 22, 2019 20:48
--- NOTE | 2019-09-22 21:12 | NUR ---
Nursing note: Assumed care of pt in the day room. She was cooperative tonight and took meds in food. She was compliant with assessment. No agitation, no hallucinations or delusions present, no c/o pain.
[2019-09-23] MEDS: BUDESONIDE 0.5 MG/2 ML NEBU NEB SCH ×3 (03:04→20:06)
[2019-09-23] MEDS: ALBUTEROL SULFATE 2.5 MG/3 ML NEBU. NEB SCH ×4 (03:04→20:06)
[2019-09-23 05:12] VITALS: BP 137/67
[2019-09-23] MEDS: ASPIRIN 325 MG TABLET PO SCH (09:17)
[2019-09-23] MEDS: busPIRone 5 MG TABLET. PO SCH ×3 (09:17→19:49)
[2019-09-23] MEDS: CALCIUM CARB/VIT D3 500/200 TABLET PO SCH ×2 (09:18→19:49)
[2019-09-23] MEDS: METOPROLOL TART IMMED RELEASE 25 MG TABLET PO SCH ×2 (09:18→19:49)
[2019-09-23] MEDS: CHOLECALCIFEROL (VITAMIN D3) 1,000 UNIT TABLET PO SCH (09:18)
[2019-09-23] MEDS: POLYETHYLENE GLYCOL 3350 17 GM PACKET. PO SCH (09:18)
[2019-09-23] MEDS: FAMOTIDINE 20 MG TABLET PO SCH (09:18)
[2019-09-23] MEDS: predniSONE 5 MG TABLET PO SCH (09:18)
[2019-09-23] MEDS: SERTRALINE 50 MG TABLET. PO SCH (09:19)
--- NOTE | 2019-09-23 09:54 | NUR ---
Pt is calm, cooperative, confused, and compliant. No agitation, no aggression, no hallucinations, no delusions. She is compliant with her medication and assessment.
[2019-09-23 15:54] VITALS: BP 105/64
--- NOTE | 2019-09-23 18:07 | NUR ---
Pt is in the dayroom and began to yell and scream to "let me out." Staff attempted to redirect pt however she was adamant she needed to leave. When nurse approached pt with [employer] she was receptive and stated "just let me out of here." "I'll pay you back all the money I owe you." "I just need to get home. I don't have a family like you." Nurse reassured and redirected pt. Pain pill was also offered to pt however pt declined.
[2019-09-23] MEDS: MELATONIN 3 MG TABLET PO SCH (19:49)
[2019-09-23] MEDS: traMADol 50 MG TABLET PO PRN (19:51)
--- NOTE | 2019-09-23 20:39 | PDOC ---
Exam Note: Rodolfo Note: Please also refer to the separate dictated note~for this date of service dictated separately.~Patient seen individually. Discussed the patient with Nursing staff reviewed the chart.~Reviewed interim history and current functioning. Reviewed vital signs,~Labs/ Radiology~and current medications noted below. Continue current treatment with the changes noted in the dictated addendum note Assessment: Vital Signs/I&O: Vital Signs Date Time Temp Pulse Resp B/P (MAP) Pulse Ox O2 Delivery O2 Flow Rate FiO2 09/23/19 20:12 99 Nasal Cannula 2.0 09/23/19 19:51 20 09/23/19 19:49 76 105/64 09/23/19 15:54 98.4 I & O 09/22/19 09/22/19 09/23/19 15:00 23:00 07:00 Intake Total 600 ml 720 ml Balance 600 ml 720 ml Current Medications: Meds: Current Medications Medications (Trade) Dose Ordered Sig/Abiel Route PRN Reason Start Time Stop Time Status Last Admin Dose Admin Buspirone HCl (Buspar) 5 mg TID PO 09/22/19 21:00 09/23/19 19:49 I have reviewed the current psychotropics carefully including drug interactions. Risk benefit ratio favors no change other than as noted in my dictated progress note. Diagnosis: Problems: (1) Anxiety disorder (2) Dementia in Alzheimer's disease with delusions (3) Dementia in Alzheimer's disease with depression (4) Dementia, vascular, with delusions (5) Dementia, vascular, with depression (6) Impulse control disorder (7) [place] (hard of hearing) CHITRA BRANNON MD Sep 23, 2019 20:39
--- NOTE | 2019-09-23 22:13 | NUR ---
Nursing note: Assumed care of pt in her room. She was irritable and in pain. Not cooperating but took meds in food with much encouragement. Pt very tired.
[2019-09-24] MEDS ORDERED: ALENDRONATE SODIUM 35 MG TABLET PO SCH ×2 (04:45→07:00)
[2019-09-24] MEDS: ALBUTEROL SULFATE 2.5 MG/3 ML NEBU. NEB SCH ×4 (04:57→22:35)
[2019-09-24 06:26] VITALS: BP 114/56
[2019-09-24] MEDS: busPIRone 5 MG TABLET. PO SCH ×3 (09:44→18:03)
[2019-09-24] MEDS: ASPIRIN 325 MG TABLET PO SCH (09:44)
[2019-09-24 09:46] VITALS: BP 111/69
[2019-09-24] MEDS: METOPROLOL TART IMMED RELEASE 25 MG TABLET PO SCH ×2 (09:46→18:04)
[2019-09-24] MEDS: POLYETHYLENE GLYCOL 3350 17 GM PACKET. PO SCH (09:46)
[2019-09-24] MEDS: CALCIUM CARB/VIT D3 500/200 TABLET PO SCH ×2 (09:47→18:04)
[2019-09-24] MEDS: FAMOTIDINE 20 MG TABLET PO SCH (09:47)
[2019-09-24] MEDS: predniSONE 5 MG TABLET PO SCH (09:47)
[2019-09-24] MEDS: CHOLECALCIFEROL (VITAMIN D3) 1,000 UNIT TABLET PO SCH (09:47)
[2019-09-24] MEDS: SERTRALINE 50 MG TABLET. PO SCH (09:48)
--- NOTE | 2019-09-24 10:25 | NUR ---
She is compliant with her medication and assessment. Pt is calm, cooperative, confused, and compliant. No agitation, no aggression, no hallucinations, no delusions.
[2019-09-24] MEDS: BUDESONIDE 0.5 MG/2 ML NEBU NEB SCH ×2 (11:22→22:35)
--- NOTE | 2019-09-24 12:30 | NUR ---
Pt is in the dining room refusing to eat stating "Im not eating that slop." Pt was offered alternatives but declined. Pt believes she is in a religious and stated "I'll never come back to this religious to eat again." Pt yelled out once in the dining room and was taken to the [facility] for deescalation. [employer] .
[2019-09-24 16:06] VITALS: BP 105/62
[2019-09-24] MEDS: MELATONIN 3 MG TABLET PO SCH (18:04)
--- NOTE | 2019-09-24 20:30 | PDOC ---
Exam Note: Rodolfo Note: Please also refer to the separate dictated note~for this date of service dictated separately.~Patient seen individually. Discussed the patient with Nursing staff reviewed the chart.~Reviewed interim history and current functioning. Reviewed vital signs,~Labs/ Radiology~and current medications noted below. Continue current treatment with the changes noted in the dictated addendum note Assessment: Vital Signs/I&O: Vital Signs Date Time Temp Pulse Resp B/P (MAP) Pulse Ox O2 Delivery O2 Flow Rate FiO2 09/24/19 18:04 100 105/62 09/24/19 17:01 Nasal Cannula 2.0 09/24/19 16:06 97.4 20 98 I & O 09/23/19 09/23/19 09/24/19 15:00 23:00 07:00 Intake Total 240 ml 360 ml Balance 240 ml 360 ml Current Medications: Meds: Current Medications Medications (Trade) Dose Ordered Sig/Abiel Route PRN Reason Start Time Stop Time Status Last Admin Dose Admin Alendronate Sodium (Fosamax) 70 mg WEEKLYAC PO 09/24/19 07:00 09/24/19 09:43 I have reviewed the current psychotropics carefully including drug interactions. Risk benefit ratio favors no change other than as noted in my dictated progress note. Diagnosis: Problems: (1) Anxiety disorder (2) Dementia in Alzheimer's disease with delusions (3) Dementia in Alzheimer's disease with depression (4) Dementia, vascular, with delusions (5) Dementia, vascular, with depression (6) Impulse control disorder (7) [place] (hard of hearing) CHITRA BRANNON MD Sep 24, 2019 20:30
--- NOTE | 2019-09-24 22:16 | PN ---
DATE: 09/22/2019 PSYCHIATRIC PROGRESS NOTE This late entry 09/22/2019 covers elements not covered in my initial note. SUBJECTIVE: I met with the patient evening of 09/22/2019. The patient slept 4-1/2 hours previous night per MAXIM Harper. She is somewhat hard of hearing, withdrawn and is tolerating the change of Seroquel to BuSpar. She has a Cam boot. WBCs are back to normal. REVIEW OF SYSTEMS: Hard of hearing, impaired ambulation status post fall and fracture of her foot, left ankle. No CV, , pulmonary, eye system symptoms on review. MENTAL STATUS EXAM: Oriented to herself and situation. Speech moderate latency, often responses monosyllabic. Abstraction fair, computation impaired, language function intact, attention span short. Mood and affect somewhat withdrawn. LABORATORY DATA: Reviewed. IMPRESSION: Unchanged from initial note. PLAN: No change from initial note. Seroquel has been changed to BuSpar. Rest unchanged. Defer medical management to Dr. Gupta. CHITRA BRANNON MD DR: BEATRIZ/kem JOB#: [id number] / [id number]
--- NOTE | 2019-09-24 23:16 | NUR ---
Patient was sitting in day room near the oxygen flow meter. Patient is on continual oxygen 2L NC and has been taking her oxygen off intermittently this shift. Staff has reminded patient to put NC back on and she does. Patient pleasant, calm and oriented to self only at this time. Patient requested to speak with Dr immediately after he rounded as she had forgotten she just spoke with him. Easily re-directed at this time. Compliant with medications and cooperative with staff. Appropriate mood and no combativeness noted at this time.
[2019-09-25] MEDS: ALBUTEROL SULFATE 2.5 MG/3 ML NEBU. NEB SCH ×4 (04:36→19:58)
[2019-09-25 05:43] VITALS: BP 163/84
[2019-09-25] MEDS: POLYETHYLENE GLYCOL 3350 17 GM PACKET. PO SCH (08:45)
[2019-09-25] MEDS: ASPIRIN 325 MG TABLET PO SCH (08:45)
[2019-09-25] MEDS: busPIRone 5 MG TABLET. PO SCH ×3 (08:45→20:04)
[2019-09-25] MEDS: CHOLECALCIFEROL (VITAMIN D3) 1,000 UNIT TABLET PO SCH (08:45)
[2019-09-25] MEDS: CALCIUM CARB/VIT D3 500/200 TABLET PO SCH ×2 (08:45→20:04)
[2019-09-25] MEDS: predniSONE 5 MG TABLET PO SCH (08:45)
[2019-09-25] MEDS: FAMOTIDINE 20 MG TABLET PO SCH (08:45)
[2019-09-25] MEDS: METOPROLOL TART IMMED RELEASE 25 MG TABLET PO SCH ×2 (08:46→20:05)
[2019-09-25] MEDS: SERTRALINE 50 MG TABLET. PO SCH (08:46)
[2019-09-25] MEDS: BUDESONIDE 0.5 MG/2 ML NEBU NEB SCH ×2 (10:41→19:58)
--- NOTE | 2019-09-25 15:12 | NUR ---
Patient in her room for assessment and medication. She slept in until about 0945. Woke up and participated with morning ADLs with no issue. Calm, cooperative and compliant. Participated in groups, good appetite. No agitation. Denies SI/HI. Denies pain or discomfort.
[2019-09-25 15:35] VITALS: BP 115/52
--- NOTE | 2019-09-25 15:56 | PN ---
DATE: 09/23/2019 PSYCHIATRIC PROGRESS NOTE This late entry 09/23/2019 covers elements not covered in my initial note. SUBJECTIVE: I met with the patient in the evening. The patient slept 5-1/2 hours previous night. The patient remains anxious, restless, at 1800 she received Zyprexa p.r.n. She is wanting to go home, oblivious to why she is here and what is being done. REVIEW OF SYSTEMS: Hard of hearing. Impaired ambulation. No CV, , pulmonary, eye system symptoms on review. MENTAL STATUS EXAM: Oriented to herself and situation. Speech has some latency, coherent. Abstraction fair, computation impaired, language function intact, attention span short. Mood and affect remains anxious, labile. LABORATORY DATA: Reviewed. IMPRESSION: Unchanged from initial note. PLAN: No change from initial note. MAN Violeta BRANNON MD DR: BEATRIZ/kem JOB#: [id number] / [id number]
[2019-09-25] MEDS: MELATONIN 3 MG TABLET PO SCH (20:05)
--- NOTE | 2019-09-25 20:05 | PDOC ---
Exam Note: Rodolfo Note: Please also refer to the separate dictated note~for this date of service dictated separately.~Patient seen individually. Discussed the patient with Nursing staff reviewed the chart.~Reviewed interim history and current functioning. Reviewed vital signs,~Labs/ Radiology~and current medications noted below. Continue current treatment with the changes noted in the dictated addendum note Assessment: Vital Signs/I&O: Vital Signs Date Time Temp Pulse Resp B/P (MAP) Pulse Ox O2 Delivery O2 Flow Rate FiO2 09/25/19 19:59 98 Nasal Cannula 2.0 09/25/19 15:35 98.5 93 16 115/52 (73) I & O 09/24/19 09/24/19 09/25/19 15:00 23:00 07:00 Intake Total 0 ml 240 ml 100 ml Balance 0 ml 240 ml 100 ml Current Medications: I have reviewed the current psychotropics carefully including drug interactions. Risk benefit ratio favors no change other than as noted in my dictated progress note. Diagnosis: Problems: (1) Anxiety disorder (2) Dementia in Alzheimer's disease with delusions (3) Dementia in Alzheimer's disease with depression (4) Dementia, vascular, with delusions (5) Dementia, vascular, with depression (6) Impulse control disorder (7) [place] (hard of hearing) CHITRA BRANNON MD Sep 25, 2019 20:05
--- NOTE | 2019-09-26 | PN ---
DATE: 09/24/2019 PSYCHIATRIC PROGRESS NOTE This late entry of 09/24/2019 covers the elements not covered in my initial note. SUBJECTIVE: I met with the patient in the evening. The patient slept 6-3/4 hours the previous night. The patient has done reasonably during the day, somewhat delusional in the morning, felt she was at religious, was agitated at lunch, received Zyprexa which seems to help, had poor appetite at lunch and then was in the [facility] part-time after this. REVIEW OF SYSTEMS: Hard of hearing, impaired ambulation, discomfort in the foot, status post fracture. No CV, , pulmonary, eye system symptoms on review. MENTAL STATUS EXAM: Oriented to herself and situation. Speech has some latency, coherent. Abstraction fair, computation impaired, language function intact, attention span short. Mood and affect withdrawn. LABORATORY DATA: Reviewed. IMPRESSION: Unchanged from initial note. PLAN: No change from initial note. CHITRA BRANNON MD DR: BEATRIZ/kem JOB#: [id number] / [id number]
[2019-09-26] MEDS: traMADol 50 MG TABLET PO PRN (02:25)
--- NOTE | 2019-09-26 04:12 | NUR ---
Nsg Note: Patient was in day room at time of medication administration and assessments. Patient was pleasantly confused, calm, compliant. Patient took medications crushed in apple sauce. Patient took some pain medication at 0130 for pain to ankle. No other notable behaviors at this time.
[2019-09-26] MEDS: ALBUTEROL SULFATE 2.5 MG/3 ML NEBU. NEB SCH ×4 (04:58→23:35)
[2019-09-26 06:17] VITALS: BP 130/75
[2019-09-26 07:17] LABS: HEMATOCRIT 27.7 % (36.0-47.0); HEMOGLOBIN 8.5 g/dL (12.0-15.5); RED BLOOD COUNT 2.91 x10^6/uL (3.50-5.40); RED CELL DISTRIBUTION WIDTH 14.6 % (11.5-14.5)
[2019-09-26 07:39] LABS: ALBUMIN 2.3 g/dL (3.4-5.0); ALBUMIN/GLOBULIN RATIO 0.6 (1.0-1.7); CREATININE 0.8 mg/dL (0.6-1.0); POTASSIUM 4.1 mmol/L (3.5-5.1); TOTAL BILIRUBIN 0.3 mg/dL (0.2-1.0)
[2019-09-26] MEDS: METOPROLOL TART IMMED RELEASE 25 MG TABLET PO SCH ×2 (11:23→21:00)
[2019-09-26] MEDS: POLYETHYLENE GLYCOL 3350 17 GM PACKET. PO SCH (11:23)
[2019-09-26] MEDS: busPIRone 5 MG TABLET. PO SCH ×3 (11:23→21:40)
[2019-09-26] MEDS: ASPIRIN 325 MG TABLET PO SCH (11:23)
[2019-09-26] MEDS: FAMOTIDINE 20 MG TABLET PO SCH (11:23)
[2019-09-26] MEDS: CHOLECALCIFEROL (VITAMIN D3) 1,000 UNIT TABLET PO SCH (11:23)
[2019-09-26] MEDS: predniSONE 5 MG TABLET PO SCH (11:23)
[2019-09-26] MEDS: SERTRALINE 50 MG TABLET. PO SCH (11:24)
[2019-09-26] MEDS: CALCIUM CARB/VIT D3 500/200 TABLET PO SCH ×2 (11:33→21:41)
[2019-09-26] MEDS: BUDESONIDE 0.5 MG/2 ML NEBU NEB SCH ×2 (11:57→23:35)
[2019-09-26 16:07] VITALS: BP 106/54
--- NOTE | 2019-09-26 18:17 | NUR ---
Patient has been calm, compliant, and pleasantly confused during this shift. She slept in until just after 11:00 and received her morning meds when she got up. CAM boot arrived and was placed on patient's left foot. Patient has been in the day room most of the shift, participating in groups. Will continue to monitor and report to oncoming shift.
--- NOTE | 2019-09-26 19:51 | PDOC ---
Exam Note: Rodolfo Note: Please also refer to the separate dictated note~for this date of service dictated separately.~Patient seen individually. Discussed the patient with Nursing staff reviewed the chart.~Reviewed interim history and current functioning. Reviewed vital signs,~Labs/ Radiology~and current medications noted below. Continue current treatment with the changes noted in the dictated addendum note Assessment: Vital Signs/I&O: Vital Signs Date Time Temp Pulse Resp B/P (MAP) Pulse Ox O2 Delivery O2 Flow Rate FiO2 09/26/19 17:06 Nasal Cannula 2.0 09/26/19 16:07 97.4 76 16 106/54 (71) 96 I & O 09/25/19 09/25/19 09/26/19 15:00 23:00 07:00 Intake Total 240 ml 240 ml 100 ml Balance 240 ml 240 ml 100 ml Labs: Laboratory Tests Test 09/26/19 06:10 White Blood Count 13.0 x10^3/uL (4.0-11.0) H Red Blood Count 2.91 x10^6/uL (3.50-5.40) L Hemoglobin 8.5 g/dL (12.0-15.5) L Hematocrit 27.7 % (36.0-47.0) L Mean Corpuscular Volume 95 fL (79-100) Mean Corpuscular Hemoglobin 29 pg (25-35) Mean Corpuscular Hemoglobin Concent 31 g/dL (31-37) Red Cell Distribution Width 14.6 % (11.5-14.5) H Platelet Count 438 x10^3/uL (140-400) H Sodium Level 148 mmol/L (136-145) H Potassium Level 4.1 mmol/L (3.5-5.1) Chloride Level 106 mmol/L (98-107) Carbon Dioxide Level 36 mmol/L (21-32) H Anion Gap 6 (6-14) Blood Urea Nitrogen 29 mg/dL (7-20) H Creatinine 0.8 mg/dL (0.6-1.0) Estimated GFR (Cockcroft-Gault) 68.0 BUN/Creatinine Ratio 36 (6-20) H Glucose Level 143 mg/dL (70-99) H Calcium Level 9.0 mg/dL (8.5-10.1) Total Bilirubin 0.3 mg/dL (0.2-1.0) Aspartate Amino Transferase (AST) 21 U/L (15-37) Alanine Aminotransferase (ALT) 23 U/L (14-59) Alkaline Phosphatase 118 U/L (46-116) H Total Protein 6.0 g/dL (6.4-8.2) L Albumin 2.3 g/dL (3.4-5.0) L Albumin/Globulin Ratio 0.6 (1.0-1.7) L Current Medications: I have reviewed the current psychotropics carefully including drug interactions. Risk benefit ratio favors no change other than as noted in my dictated progress note. Diagnosis: Problems: (1) Anxiety disorder (2) Dementia in Alzheimer's disease with delusions (3) Dementia in Alzheimer's disease with depression (4) Dementia, vascular, with delusions (5) Dementia, vascular, with depression (6) Impulse control disorder (7) [place] (hard of hearing) CHITRA BRANNON MD Sep 26, 2019 19:51
[2019-09-26] MEDS: MELATONIN 3 MG TABLET PO SCH (21:40)
[2019-09-26] MEDS: PENICILLIN G BENZATHINE LA 1,200,000 UNIT/2 ML DISP.SYRIN. IM SCH (21:42)
--- NOTE | 2019-09-26 21:49 | RAD ---
Study: HIP LEFT 2V WITH PELVIS Indication: Fall with recent left hip ORIF. Comparison: None. Findings: Operative changes of cephalomedullary nail placement of the left proximal femur with lag screw fixation. The hardware is intact. The cephalad aspect of the intramedullary nail projects approximately a centimeter above the greater trochanter however this is likely an expected finding given the normal configuration of the distal interlocking screw. Intertrochanteric left femur fracture without solid bridging callus. The femoral head remains seated within the acetabulum. Taking into consideration osteopenia, no displaced fracture seen the on the left intertrochanteric fracture noting that the right hip is not fully assessed. Impression: Intertrochanteric left femur fracture with a traversing cephalomedullary nail and lag screw. No comparison studies are available to determine if fracture alignment has changed since surgical fixation. It is difficult to determine if there are any complications at this site as surgery has apparently been performed recently. Taking into consideration osteopenia, no acute fracture seen elsewhere noting that the right hip is not fully evaluated. Electronically signed by: MOOKIE DANIELS MD (09/26/2019 9:47 PM) [facility]
--- NOTE | 2019-09-26 23:12 | NUR ---
Nursing Note Pt in bed upon assessment, compliant and cooperative. Confused but pleasant.
[2019-09-27 06:06] VITALS: BP 113/62
[2019-09-27] MEDS: BUDESONIDE 0.5 MG/2 ML NEBU NEB SCH ×3 (08:00→21:03)
[2019-09-27] MEDS: ASPIRIN 325 MG TABLET PO SCH (08:45)
[2019-09-27] MEDS: POLYETHYLENE GLYCOL 3350 17 GM PACKET. PO SCH (08:45)
[2019-09-27] MEDS: busPIRone 5 MG TABLET. PO SCH ×3 (08:46→20:10)
[2019-09-27] MEDS: CALCIUM CARB/VIT D3 500/200 TABLET PO SCH ×2 (08:46→20:09)
[2019-09-27] MEDS: METOPROLOL TART IMMED RELEASE 25 MG TABLET PO SCH ×2 (08:46→20:13)
[2019-09-27] MEDS: FAMOTIDINE 20 MG TABLET PO SCH (08:46)
[2019-09-27] MEDS: predniSONE 5 MG TABLET PO SCH (08:46)
[2019-09-27] MEDS: SERTRALINE 50 MG TABLET. PO SCH (08:46)
[2019-09-27] MEDS: CHOLECALCIFEROL (VITAMIN D3) 1,000 UNIT TABLET PO SCH (08:47)
--- NOTE | 2019-09-27 09:15 | PN ---
DATE: 09/25/2019 PSYCHIATRIC PROGRESS NOTE This late entry, date of service, 09/25/2019 covers the elements not covered in my initial note. SUBJECTIVE: I met with the patient in the evening of 09/25/2019. The patient slept 7 hours previous night. Per MAXIM Hughes, the patient had a better day today. She slept ____ in the morning, has been pleasant, cooperative, smiling. REVIEW OF SYSTEMS: Shortness of breath on O2 supplements. Hard of hearing, impaired ambulation, in wheelchair consequent to a fracture ankle, status post hip fracture. No CV, GI, system symptoms on review. MENTAL STATUS EXAM: Oriented to herself and situation. Speech has some latency, coherent, abstraction fair, computation impaired, language function intact, attention span short. Mood and affect somewhat withdrawn at times. LABORATORY DATA: Reviewed. IMPRESSION: Unchanged from initial note. PLAN: No change from initial note. CHITRA BRANNON MD DR: BEATRIZ/kem JOB#: [id number] / [id number]
[2019-09-27] MEDS: ALBUTEROL SULFATE 2.5 MG/3 ML NEBU. NEB SCH ×3 (11:05→21:03)
[2019-09-27 16:25] VITALS: BP 109/58
--- NOTE | 2019-09-27 18:01 | NUR ---
Patient has been calm, compliant, and pleasantly confused during this shift. She was up for breakfast and has been in the day room most of the shift, participating in groups at times. Patient was delusional in the afternoon, stating that she had to get to the [facility] to case picker her boys; she was easily redirected. Will continue to monitor and report to oncoming shift.
--- NOTE | 2019-09-27 19:51 | PDOC ---
Exam Note: Rodolfo Note: Please also refer to the separate dictated note~for this date of service dictated separately.~Patient seen individually. Discussed the patient with Nursing staff reviewed the chart.~Reviewed interim history and current functioning. Reviewed vital signs,~Labs/ Radiology~and current medications noted below. Continue current treatment with the changes noted in the dictated addendum note Assessment: Vital Signs/I&O: Vital Signs Date Time Temp Pulse Resp B/P (MAP) Pulse Ox O2 Delivery O2 Flow Rate FiO2 09/27/19 17:05 Nasal Cannula 2.0 09/27/19 16:25 98.7 77 16 109/58 (75) 98 I & O 09/26/19 09/26/19 09/27/19 15:00 23:00 07:00 Intake Total 240 ml 340 ml Balance 240 ml 340 ml Current Medications: I have reviewed the current psychotropics carefully including drug interactions. Risk benefit ratio favors no change other than as noted in my dictated progress note. Diagnosis: Problems: (1) Anxiety disorder (2) Dementia in Alzheimer's disease with delusions (3) Dementia in Alzheimer's disease with depression (4) Dementia, vascular, with delusions (5) Dementia, vascular, with depression (6) Impulse control disorder (7) [place] (hard of hearing) CHITRA BRANNON MD Sep 27, 2019 19:51
[2019-09-27] MEDS: MELATONIN 3 MG TABLET PO SCH (20:10)
--- NOTE | 2019-09-27 23:25 | NUR ---
Nursing Note In day room at shift change, pleasant and cooperative. Smiles on approach, makes jokes seems in good spirits. Compliant with meds and assessments.
--- NOTE | 2019-09-28 04:48 | PN ---
DATE: 09/26/2019 PSYCHIATRIC PROGRESS NOTE This late entry 09/26/2019 covers elements not covered in my initial note. SUBJECTIVE: I met with the patient in the evening. Per Leroy RN, the patient slept 6-1/4 hours previous night. She slept in the morning until 11 a.m. Labs are abnormal, we will defer to Dr. Gupta. REVIEW OF SYSTEMS: Shortness of breath on O2 supplements, impaired ambulation in wheelchair. No CV, GI, , eye system symptoms on review. Reliability poor. MENTAL STATUS EXAM: Oriented to herself, at times situation. Speech has some latency, coherent. Abstraction fair, computation impaired, language function intact. Mood and affect remain somewhat anxious, at times labile. LABORATORY DATA: Reviewed. IMPRESSION: Major depressive disorder, recurrent, mild cognitive impairment; anxiety disorder, unspecified. Rest unchanged. PLAN: No change from initial note. Defer medical management to Dr. Gupta. CHITRA BRANNON MD DR: BEATRIZ/kem JOB#: [id number] / [id number]
[2019-09-28] MEDS: ALBUTEROL SULFATE 2.5 MG/3 ML NEBU. NEB SCH ×4 (05:03→22:21)
[2019-09-28 05:56] VITALS: BP 109/68
[2019-09-28] MEDS: ASPIRIN 325 MG TABLET PO SCH (08:32)
[2019-09-28] MEDS: FAMOTIDINE 20 MG TABLET PO SCH (08:32)
[2019-09-28] MEDS: CHOLECALCIFEROL (VITAMIN D3) 1,000 UNIT TABLET PO SCH (08:32)
[2019-09-28] MEDS: busPIRone 5 MG TABLET. PO SCH ×3 (08:32→19:48)
[2019-09-28] MEDS: SERTRALINE 50 MG TABLET. PO SCH (08:33)
[2019-09-28] MEDS: CALCIUM CARB/VIT D3 500/200 TABLET PO SCH ×2 (08:33→19:48)
[2019-09-28] MEDS: predniSONE 5 MG TABLET PO SCH (08:33)
[2019-09-28] MEDS: METOPROLOL TART IMMED RELEASE 25 MG TABLET PO SCH ×2 (08:34→19:49)
[2019-09-28] MEDS: POLYETHYLENE GLYCOL 3350 17 GM PACKET. PO SCH (08:34)
--- NOTE | 2019-09-28 09:33 | NUR ---
WEEKLY ACTIVITY THERAPY NOTE Date of Admission: 09/11/2019 Date of AT Assessment: 09/14/2019 Goal aimed: to increase socialization and engagement Initial Goal: Pt. will engage in two Activity Therapy groups per week. Weekly progress towards goal: exceeded, 5/ Group participation level: varied Weekly highlights: drawing on white board, spelling out "Lion Arturo" Behaviors observed: smiling more often this week, more engaged, sleeping often Plan: change goal to: Pt. will participate in at least five Activity Therapy groups per week Beneficial adaptations: oxygen concentrator, staff support, use of pocketalker, exercise groups, easier to engage in mornings
[2019-09-28] MEDS: BUDESONIDE 0.5 MG/2 ML NEBU NEB SCH ×2 (09:42→22:21)
--- NOTE | 2019-09-28 10:55 | NUR ---
CHANDANA left msg. for JERRY Faith at [facility], to discuss pt. progress and discharge scheduled for 09/29/2019. Addendum: 09/28/19 at 1257 by AMALIA ELLINGTON CHANDANA spoke to [facility] regarding pt. progress and discharge scheduled for 09/29/2019. CHANDANA faxed updated pt. paperwork to [facility] in preparation of discharge. CHANDANA spoke to pt. daughter, Heaven, regarding pt. progress and discharge. CHANDANA spoke to pt. to let her know she would be discharging tomorrow.
--- NOTE | 2019-09-28 10:56 | NUR ---
WEEKLY NOTE Pt. eats 75% of meals and sleeps an average of 6 hours. Pt. has been cooperative with ADLs and complaint with medications. Pt. has been pleasant, calm, smiles on approach, and is interactive with staff. Pt. is delusional at times. Pt. will discharge back to [facility] on 09/29/2019.
--- NOTE | 2019-09-28 15:27 | NUR ---
[facility] Social Work Discharge Planning Form Patient Name JESSICA HAYES Admit Date: 09/11/2019 DISCHARGE PLAN Discharge Destination: [facility] Care Assessment: NA Level II Assessment: NA Transportation: [facility] to transport pt. on 09/29/2019 at 2:30 p.m. Special Instructions/Notes: Please fax medication list, discharge paperwork, and doctor's orders to [phone]. DISCHARGE TO FACILITY Facility: [facility] Address: [address] [place] [id number] Contact Name: JERRY Faith Contact Name: CHANDANA Collado PCP: Dr. Lauren Montgomery Psychiatrist: [facility]
[2019-09-28 16:01] VITALS: BP 98/64
[2019-09-28] MEDS: MELATONIN 3 MG TABLET PO SCH (19:48)
--- NOTE | 2019-09-28 19:57 | PDOC ---
Exam Note: Rodolfo Note: Please also refer to the separate dictated note~for this date of service dictated separately.~Patient seen individually. Discussed the patient with Nursing staff reviewed the chart.~Reviewed interim history and current functioning. Reviewed vital signs,~Labs/ Radiology~and current medications noted below. Continue current treatment with the changes noted in the dictated addendum note Assessment: Vital Signs/I&O: Vital Signs Date Time Temp Pulse Resp B/P (MAP) Pulse Ox O2 Delivery O2 Flow Rate FiO2 09/28/19 19:49 77 98/64 09/28/19 16:01 98.4 18 96 09/28/19 15:29 Nasal Cannula 2.0 I & O 09/27/19 09/27/19 09/28/19 15:00 23:00 07:00 Intake Total 240 ml 480 ml Balance 240 ml 480 ml Current Medications: I have reviewed the current psychotropics carefully including drug interactions. Risk benefit ratio favors no change other than as noted in my dictated progress note. Diagnosis: Problems: (1) Anxiety disorder (2) Dementia in Alzheimer's disease with delusions (3) Dementia in Alzheimer's disease with depression (4) Dementia, vascular, with delusions (5) Dementia, vascular, with depression (6) Impulse control disorder (7) [place] (hard of hearing) CHITRA BRANNON MD Sep 28, 2019 19:57
--- NOTE | 2019-09-28 22:12 | NUR ---
Nursing Note Pt pleasant and cooperative. Denies complaints this pm. Smiles on approach in good spirits.
[2019-09-29] MEDS ORDERED: ALBU2.5V8 IH (05:10)
[2019-09-29] MEDS ORDERED: BUSP5TAB PO (05:16)
[2019-09-29] MEDS ORDERED: OLAN5TAB5 PO (05:16)
[2019-09-29 05:55] VITALS: BP 122/66
[2019-09-29] MEDS: CALCIUM CARB/VIT D3 500/200 TABLET PO SCH (07:39)
[2019-09-29] MEDS: SERTRALINE 50 MG TABLET. PO SCH (07:40)
[2019-09-29] MEDS: predniSONE 5 MG TABLET PO SCH (07:40)
[2019-09-29] MEDS: ASPIRIN 325 MG TABLET PO SCH (07:40)
[2019-09-29 07:41] VITALS: BP 122/66
[2019-09-29] MEDS: CHOLECALCIFEROL (VITAMIN D3) 1,000 UNIT TABLET PO SCH (07:41)
[2019-09-29] MEDS: FAMOTIDINE 20 MG TABLET PO SCH (07:41)
[2019-09-29] MEDS: METOPROLOL TART IMMED RELEASE 25 MG TABLET PO SCH (07:41)
[2019-09-29] MEDS: busPIRone 5 MG TABLET. PO SCH (07:41)
[2019-09-29] MEDS: POLYETHYLENE GLYCOL 3350 17 GM PACKET. PO SCH (07:42)
[2019-09-29 10:00] LABS: FECAL OB PT NEGATIVE (NEG)
[2019-09-29] MEDS: BUDESONIDE 0.5 MG/2 ML NEBU NEB SCH (10:18)
[2019-09-29] MEDS: ALBUTEROL SULFATE 2.5 MG/3 ML NEBU. NEB SCH (10:18)
[2019-09-29] MEDS ORDERED: SERT50TA PO (12:10)
--- NOTE | 2019-09-29 12:35 | NUR ---
Transition Record was faxed to follow-up provider with the following elements: Reason for admission, procedures, tests, principal diagnosis, pending studies, patient instructions, 31/05 contact information for unit, phone number to obtain pending test results, plan for follow-up care, physician follow-up, advanced directive information, and medication list with dose, duration and instructions. This information was included in the following documents: History and physical, lab results, study results, progress notes, social work planning form, DC instruction form, patient visit summary, and medication reconciliation form. Date & time record faxed: 12:04 29 September 2019, additional information sent at 12:45 29 September 2019 Record faxed to: [facility] Record discussed with/ report given to: MAXIM Alvarez at [facility]
--- NOTE | 2019-09-29 12:49 | DS ---
DATE OF DISCHARGE: 09/29/2019 PSYCHIATRIC DISCHARGE SUMMARY This note covers the elements not covered in my initial note of 09/29/2019. REASON FOR ADMISSION: Please refer to the admission history for details. Briefly, the patient is an 84-year-old female, referred to us from [facility] through the local Emergency Room on account of increased agitation. Upon return to the facility after hip surgery 3 weeks ago, she was refusing neuro checks swinging arms at staff, shouting at staff, angry, labile mood. Behaviors were unmanageable. She had failed outpatient psychiatric interventions resulting in this referral. SIGNIFICANT FINDINGS AND CLINICAL COURSE: Following admission, the patient was seen daily individually by myself from a psychiatric standpoint, medical followup per Dr. Gupta. The patient was quite hard of hearing, anxious with remained on oxygen supplements with short-term memory deficits. She was quite labile and restless. Adjustments were made in her psychotropics and she seemed to respond to a combination of BuSpar 5 mg t.i.d., Zoloft 75 mg a day, melatonin 3 mg at bedtime, and Zyprexa p.r.n. REVIEW OF SYSTEMS: Prior to discharge on 09/29/2019, some shortness of breath, on O2 supplements, impaired ambulation in wheelchair. She did sustain an ankle fracture and is status post hip fracture. No CV, , pulmonary, eye system symptoms on review other than above. MENTAL STATUS EXAM: Oriented to herself and situation. Speech has some latency, coherent at times. Abstraction fair, computation impaired, language function intact, attention span short. Mood and affect improved. LABORATORY DATA: Reviewed. Memory is impaired. CONDITION AT DISCHARGE: Improved. FINAL DIAGNOSES: Major depressive disorder, recurrent, in partial remission; major neurocognitive disorder, early Alzheimer, vascular with depression; anxiety disorder, unspecified; impulse control disorder, unspecified. Rest is unchanged from admission including status post ankle fracture. DISCHARGE MEDICATIONS: Please refer to the MRAD. DISCHARGE INSTRUCTIONS: Outpatient psychiatric and medical followup at the halfway. Time for discharge day management greater than 30 minutes. MAN Violeta BRANNON MD DR: BEATRIZ/kem JOB#: [id number] / [id number]
--- NOTE | 2019-09-29 23:10 | PN ---
DATE: 09/27/2019 PSYCHIATRIC PROGRESS NOTE This late entry 09/27/2019 covers the elements not covered in my initial note. SUBJECTIVE: I met with the patient in the evening. Per MAXIM Harper, the patient slept 9 hours previous night. She remains anxious, more so in the evening, does redirect. She is wanting to get back to [place]. Remains confused, wants to pickle maker her boys from school. REVIEW OF SYSTEMS: Ambulation impaired, in wheelchair, status post ankle fracture, status post hip fracture. No CV, , pulmonary, eye system symptoms on review. Hard of hearing. MENTAL STATUS EXAM: Oriented to herself and situation. Speech has some latency, coherent. Abstraction fair, computation impaired, language function intact, attention span short. Mood and affect, somewhat anxious at times. LABORATORY DATA: Reviewed. No suicidal or homicidal ideation. IMPRESSION: Unchanged from initial note. Neurocognitive disorder, Alzheimer, vascular with delusion, depression; anxiety disorder, unspecified; impulse control disorder, unspecified; status post ankle fracture, status post hip fracture. Rest unchanged from admission. PLAN: No change from initial note. DISCHARGE MEDICATIONS: Please refer to the MRAD. MAN Violeta BRANNON MD DR: BEATRIZ/kem JOB#: [id number] / [id number]
--- NOTE | 2019-09-30 08:28 | PN ---
DATE: 09/28/2019 PSYCHIATRIC PROGRESS NOTE This late entry 09/28/2019 covers elements not covered in my initial note. SUBJECTIVE: I met with the patient in the evening and staffed at treatment team meeting with the entire team in the morning. The patient is sleeping about 6 hours. Appetite 75%. She is pleasant, compliant, somewhat delusional. Labs are abnormal. We will defer to Dr. Gupta. Amoxil has been stopped. REVIEW OF SYSTEMS: Shortness of breath, on O2 supplements; impaired ambulation, in wheelchair. No CV, , pulmonary, eye system symptoms on review other than above. MENTAL STATUS EXAM: Oriented to herself, situation. Speech has some latency. Abstraction fair, computation impaired, language function intact. Mood and affect somewhat anxious, labile at times. LABORATORY DATA: Reviewed. IMPRESSION: Unchanged from initial note. PLAN: No change from initial note. MAN Violeta BRANNON MD DR: BEATRIZ/kem JOB#: [id number] / [id number]
== END 2019-09-29 12:38 | DRG 885 ==
LOC: ER 18:33 → GEROPSY 21:10 → ER 21:10 → GEROPSY 09-12 06:05
PROVIDERS: ADMIT Psychiatry & Neurology Psychiatry; ATTEND Psychiatry & Neurology Psychiatry
DX: F33.41 Major depressive disorder, recurrent, in partial remission (principal); E44.0 Moderate protein-calorie malnutrition; Z68.1 Body mass index [BMI] 19.9 or less, adult; G30.9 Alzheimer's disease, unspecified; F01.50 Vascular dementia, unspecified severity, without behavioral disturbance, psychotic disturbance, mood disturbance, and anxiety; F02.80 Dementia in other diseases classified elsewhere, unspecified severity, without behavioral disturbance, psychotic disturbance, mood disturbance, and anxiety; D72.829 Elevated white blood cell count, unspecified; E78.00 Pure hypercholesterolemia, unspecified; E78.5 Hyperlipidemia, unspecified; F41.1 Generalized anxiety disorder; F63.9 Impulse disorder, unspecified; H91.90 Unspecified hearing loss, unspecified ear; F22 Delusional disorders; I10 Essential (primary) hypertension; K21.9 Gastro-esophageal reflux disease without esophagitis; I48.91 Unspecified atrial fibrillation; J44.9 Chronic obstructive pulmonary disease, unspecified; Z66 Do not resuscitate; Z79.899 Other long term (current) drug therapy; Z87.891 Personal history of nicotine dependence; S82.892A Other fracture of left lower leg, initial encounter for closed fracture; W18.30XA Fall on same level, unspecified, initial encounter; Y93.89 Activity, other specified; Y92.239 Unspecified place in hospital as the place of occurrence of the external cause; Y99.8 Other external cause status
CPT/HCPCS: 36415; 71045; 73502; 73610; 80053; 80061; 81001; 82140; 82274; 82306; 82550; 82553; 82607; 83036; 83540; 83550; 83605; 83735; 84436; 84443; 84480; 84484; 85007; 85014; 85018; 85025; 85027; 85610; 85730; 86592; 86593; 92526; 93005; 94640; 94760; J0561; J7512; J7613; J7626; P9612; 92610; 97110; 97116; 97530; 97535; 99285-25